=== PATIENT | male | born 1965 | race Caucasian/White ===

== ENCOUNTER 2017-09-15 08:24 | Day surgery (SDC) | payer OTHER ==
[~2017-09-15] VITALS: Ht 182.9 cm; Wt 152.9 kg
[~2017-09-15 08:24] MED LIST: ADDERALL XR 1515 MG PO; FLOVENT DISKUS50 MCG INH; FLUVOXAMINE MA100 M1 PO; GABAPENTIN400 MG PO; LANTUS100 UNITS/ SUB-Q; LISINOPRIL40 MG PO; METFORMIN HCL1000 M2 PO; MOBIC7.5 MG PO; NOVOLOG FL100 UNIT/1 SUB-Q; PROPRANOLOL HCL20 MG PO; SYNTHROID200 MCG PO; TORSEMIDE10 MG PO; VYVANSE70 MG PO; WELLBUTRIN SR150 MG PO
[2017-09-15] MEDS ORDERED: VICTOZA 2-0.6 MG/0.1 SUB-Q (08:55)
--- NOTE | 2017-09-15 10:00 | NUR ---
09/15/17 Lisha Hernández 0997 PATIENT ARRIVES TO PACU SLEEPING, AWAKENS WITH VERBAL STIMULI, BUT VERY DROWSY, IMMEDIATELY BACK TO SLEEP WITHOUT STIMULATION. RESP EVEN AND UNLABORED, NC AT 2 LITERS.
--- NOTE | 2017-09-16 07:54 | OR ---
[facility] [address], [place] [address] Signed DATE OF OPERATION: 09/15/2017 SURGEON: Ru Covington MD COLONOSCOPY REPORT PREOPERATIVE DIAGNOSIS: Screening. POSTOPERATIVE DIAGNOSIS: A 4 mm polyp at 45 cm. PROCEDURE: Colonoscopy with hot biopsy. ESTIMATED BLOOD LOSS: None. INDICATIONS: Masuod is a 52-year-old, obese, diabetic gentleman, asked to see me for his initial colonoscopy. He said there are no lower GI complaints. No family history of colon cancer or polyps. In the office, I gave him a pamphlet on colonoscopy. We looked at that together along with the risks including, but not limited to gas bloating, crampy abdominal pain, bleeding, perforation, requiring surgery and missed diagnosis. We also reviewed the written instructions for the bowel prep. He is well aware of the need for IV conscious sedation. He had expressed understanding and wished to proceed. PROCEDURE NOTE: Masoud was taken into our endoscopy suite and placed in the left lateral decubitus position. He was given 7 mg of Versed and 150 mcg of fentanyl for the case. A digital rectal exam was performed and I could just reach the bottom of the prostate gland and it seemed unremarkable. The adult colonoscope was introduced and advanced all the way next to the cecum under direct visualization of camera without difficulty. We brought the scope in and out several times and we simply ran out of the scope. We were cleared up to the handle. Masoud is a large man and with a long colon. Overall, his prep was good. He had a little bit of liquid stool, most of which we could irrigate and suction out. The scope was then slowly withdrawn. We saw a single 4 mm polyp back at 45 cm. It was easily removed with hot biopsy forceps. The rest of the colon and rectum were fine. Upon retroflexion of the scope, there was no additional pathology noted above the anal canal. After this, the gas was suctioned out. The colonoscope removed. Masoud tolerated Electronically Signed By: RU COVINGTON MD 09/16/17 0754 PATIENT NAME: MASOUD VARGAS OPERATIVE REPORT DATE OF : 69 REPORT #: [id number] PHYSICIAN: RU COVINGTON MD PCP: ARIANNA FIELD DO REPORT IS CONFIDENTIAL AND NOT TO BE RELEASED WITHOUT AUTHORIZATION [address] [address] Signed the procedure quite well. RECOMMENDATIONS: I will see Masoud back in my office in 7 to 14 days to review his results. Ru Covington MD ALB/MODL /[id number] cc: DO Ru Huber MD Copies: ARIANNA FIELD ANDREW L MD ~ Electronically Signed By: RU COVINGTON MD 09/16/17 0754 PATIENT NAME: MASOUD VARGAS OPERATIVE REPORT DATE OF : 69 REPORT #: [id number] PHYSICIAN: RU COVINGTON MD PCP: ARIANNA FIELD DO REPORT IS CONFIDENTIAL AND NOT TO BE RELEASED WITHOUT AUTHORIZATION
== END 2017-09-15 11:40 | disposition home or self-care (01) ==
LOC: OPS 08:24 → DS 08:24 → OPS 09:45
PROVIDERS: Colon & Rectal Surgery
PROC: 0DBE8ZZ Excision of Large Intestine, Via Natural or Artificial Opening Endoscopic (ICD-10-PCS; principal; 2017-09-15 09:45)
DX: Z12.11 Encounter for screening for malignant neoplasm of colon (principal); D12.6 Benign neoplasm of colon, unspecified; I10 Essential (primary) hypertension; E78.5 Hyperlipidemia, unspecified; E10.42 Type 1 diabetes mellitus with diabetic polyneuropathy; F32.9 Major depressive disorder, single episode, unspecified; F41.9 Anxiety disorder, unspecified; Z79.4 Long term (current) use of insulin; Z79.1 Long term (current) use of non-steroidal anti-inflammatories (NSAID); Z79.899 Other long term (current) drug therapy
CPT/HCPCS: 99153; G0500; J2250; J3010; J7120

== ENCOUNTER 2018-10-01 20:20 | Emergency (ER) | payer OTHER ==
[~2018-10-01] VITALS: Ht 182.9 cm; Wt 155.1 kg
--- OUTSIDE RECORDS SUMMARY | ~2018-10-01 | XMS | Clinical Summary ---
Demographics + + + | Address | [address] | | | [place] [address] | + + + | Home Phone | | + + + | Preferred Language | Unknown | + + + | Marital Status | | + + + | Alevism Affiliation | Unknown | + + + | Race | Unknown | + + + | Ethnic Group | Unknown | + + + Author + + + | Author | [facility] | | | and [place] | + + + | Organization | [facility] | | | and [place] | + + + | Address | Unknown | + + + | Phone | Unavailable | + + + Support + + +---------+ + | Name | Relationship | Address | Phone | + + +---------+ + | Tessa Costa | ECON | Unknown | | + + +---------+ + | Rose Espana | ECON | Unknown | | + + +---------+ + Care Team Providers + +------+ + | Care Electric Sealing Machine Operator Name | Role | Phone | + +------+ + PP | Unavailable | + +------+ + Allergies Not on File Medications Not on file Active Problems Not on file Social History + +-------+ +--------+------+ | Tobacco Use | Types | Packs/Day | Years | Date | | | | | Used | | + +-------+ +--------+------+ | Never Assessed | | | | | + +-------+ +--------+------+ + + + | Sex Assigned at | Date Recorded | | | | + + + | Not on file | | + + + + + + + | Job Start Date | Occupation | Industry | + + + + | Not on file | Not on file | Not on file | + + + + + + + + | Travel History | Travel Start | Travel End | + + + + + + | No recent travel history available. | + + Plan of Treatment + + + + + | Health Maintenance | Due Date | Last Done | Comments | + + + + + | Vaccine: | | | | | Dtap/Tdap/Td (1 - | 6 | | | | Tdap) | | | | + + + + + | Vaccine: Zoster (1 | | | | | of 2) | 7 | | | + + + + + | Vaccine: Influenza | | | | | (Season Ended) | 9 | | | + + + + + Results Not on filefrom Last 3 Months"
--- OUTSIDE RECORDS SUMMARY | ~2018-10-01 | XMS | Clinical Summary ---
Demographics + + + | Address | [address] | | | [place] [address] | + + + | Home Phone | | + + + | Preferred Language | Unknown | + + + | Marital Status | | + + + | Christian Affiliation | Unknown | + + + | Race | Unknown | + + + | Ethnic Group | Unknown | + + + Author + + + | Author | [facility] | | | and [place] | + + + | Organization | [facility] | | | and [...] Team Providers + +------+ + | Care Beverage Manager Name | Role | Phone | + [...]
[~2018-10-01 20:20] MED LIST changes: +VICTOZA 2-0.6 MG/0.1 SUB-Q
--- OUTSIDE RECORDS SUMMARY | 2018-10-01 20:24 | XMS ---
PreManage Notification: JEFFREY VARGAS Security Research Asst Events No recent Security Events currently on file [facility] There are no care providers on record at this time. [place] has no Care Guidelines for this patient. [place] VISIT COUNT (12 MO.) 1 INESSA Sofia TOTAL 1 NOTE: Visits indicate total known visits. ED/C VISIT TRACKING (12 MO.) 10/01/2018 20:21 INESSA Frausto [place] TYPE: Emergency COMPLAINT: - LEFT LEG SWELLING PAIN/NON INJURY INPATIENT VISIT TRACKING (12 MO.) No inpatient visits to display in this time frame [email or web address]
[2018-10-01] MEDS ORDERED: KEFLEX500 MG PO (23:18)
== END 2018-10-01 23:48 | disposition home or self-care (01) ==
LOC: ED 20:20
DX: L03.116 Cellulitis of left lower limb (principal); E03.9 Hypothyroidism, unspecified; I10 Essential (primary) hypertension; E11.40 Type 2 diabetes mellitus with diabetic neuropathy, unspecified; Z79.4 Long term (current) use of insulin; Z79.899 Other long term (current) drug therapy; Z23 Encounter for immunization
CPT/HCPCS: 80053; 83605; 85025; 90471; 90715; 93971; 99284-25; J3370; J7060

== ENCOUNTER 2020-09-23 04:22 | Emergency (ER) | payer OTHER ==
[~2020-09-23] VITALS: Ht 182.9 cm; Wt 152.4 kg
[~2020-09-23 04:22] MED LIST changes: +KEFLEX500 MG PO
[2020-09-23] MEDS ORDERED: TOUJEO SOL300 UNIT/1 SUB-Q (04:44)
[2020-09-23] MEDS ORDERED: JARDIANCE25 MG PO (05:01)
[2020-09-23] MEDS ORDERED: TORSEMIDE10 MG PO (05:02)
[2020-09-23] MEDS ORDERED: DEXCOM G61 EACH MC (05:02)
--- NOTE | 2020-09-23 07:02 | EKG ---
[facility] [address] [facility] [place] [address] Signed Normal sinus rhythm Low voltage QRS Borderline ECG No previous ECGs available Confirmed by ELAINA SANCHEZ MD ([id number]) on 09/23/2020 7:02:26 AM Electronically Signed By: ELAINA SANCHEZ MD 09/23/20 0702 PATIENT NAME: JEFFREY VARGAS Electrocardiogram DATE OF : 69 PHYSICIAN: ELAINA SANCHEZ MD REPORT #: [id number] REPORT IS CONFIDENTIAL AND NOT TO BE RELEASED WITHOUT AUTHORIZATION
== END 2020-09-23 10:16 | disposition home or self-care (01) ==
LOC: ED 04:22
DX: T46.4X1A Poisoning by angiotensin-converting-enzyme inhibitors, accidental (unintentional), initial encounter (principal); T44.7X1A Poisoning by beta-adrenoreceptor antagonists, accidental (unintentional), initial encounter; T43.291A Poisoning by other antidepressants, accidental (unintentional), initial encounter; T38.3X1A Poisoning by insulin and oral hypoglycemic [antidiabetic] drugs, accidental (unintentional), initial encounter; E11.40 Type 2 diabetes mellitus with diabetic neuropathy, unspecified; E03.9 Hypothyroidism, unspecified; I10 Essential (primary) hypertension; Z79.899 Other long term (current) drug therapy; Z79.4 Long term (current) use of insulin
CPT/HCPCS: 93005; 93010; 99284-25

== ENCOUNTER 2023-12-11 22:21 | Inpatient (IN) | payer OTHER ==
[~2023-12-11] VITALS: Ht 182.9 cm; Wt 120.0 kg
--- NOTE | ~2023-12-11 | HP ---
[facility] [address] [place], [place] [address] [place] ADMISSION DATE: 12/12/2023 REASON FOR ADMISSION: Gangrenous soft tissue changes, left great toe. 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 He is and has step children. He has a longstanding history of diabetes and chronic diabetic foot problems. He suffered an injury to the left great toe approximately a year ago, which has had repeated infection. He suffered a laceration on the pad of his foot and has been evaluated and treated by Dr. Woods, his superior court justice over time. Last week, he noted erythema developing on the great toe and was prescribed cefadroxil, which he started two days prior to current evaluation. The patient has had pain and swelling and redness in the left great toe and to a lesser extent the forefoot and smaller toes. He presented to the emergency room and was evaluated by Dr. Wilkerson. His superior court justice was not available and I was consulted regarding this. I recommended direct admission to the hospital, IV antibiotics and further evaluation. The patient notes that there was no "black change and" only two days ago and this is a recent phenomenon. He does not have too much pain as he does have peripheral neuropathy. He has been noted to have a palpable dorsalis pedis pulse. His antibiotic that was prescribed was Zosyn and daptomycin. I had recommended a plain x-ray of the foot be undertaken and it was, which has described as showing a possibility of osteomyelitis of the base of the distal bony segment. There appeared to be a lucency in the bone of the distal phalanx portion and a separate bone chip as well. The patient tells me he has not had an x-ray in the course of his evaluation and treatment that he recalls. PAST MEDICAL HISTORY: Quite notable for diabetes mellitus. He has hypothyroidism and hypertension as well. MEDICATIONS: Include Repatha 14 mg subcutaneously weekly, Jardiance 25 mg p.o. daily, torsemide 10 mg p.o. daily, NovoLog insulin as needed, gabapentin 400 mg p.o. daily, Synthroid 200 mcg p.o. daily, and lisinopril 40 mg p.o. daily. ALLERGIES: He has no known drug allergies. PATIENT NAME: JEFFREY VARGAS HISTORY AND PHYSICAL DATE OF : 69 REPORT #: [id number] PHYSICIAN: GRETA DOTY MD PCP: MELISSA AMBROSE MD REPORT IS CONFIDENTIAL AND NOT TO BE RELEASED WITHOUT AUTHORIZATION [facility] [address] [place], [place] [address] [place] His dominant diagnoses include diabetes mellitus, hypothyroidism, hypertension, and peripheral neuropathy. PAST SURGICAL HISTORY: Include sinus surgery in February of 2023, and partial meniscus operation in the right knee. SOCIAL HISTORY: He does not smoke. REVIEW OF SYSTEMS: He denies any shortness of breath or chest pain. He does not have excessive pain in his left great toe, though it is more than usual. PHYSICAL EXAMINATION: GENERAL: A pleasant white man who does not appear to be systemically toxic at this time. VITAL SIGNS: BMI is 35.9 with a weight of 120 kg, height 6 feet 0 inches. HEENT: Trachea is midline. Mucous membranes are moist. An IV is running in his arm. CHEST: Shows normal respiratory excursion. Pulses regular. ABDOMEN: Nondistended and soft. EXTREMITIES: Examination of his left leg and foot shows a palpable dorsalis pedis pulse 3/3. There is a demarcation line initially inscribed by the emergency room, shows erythematous area having retreated largely. The left great toe is quite markedly necrotic and with sparing somewhat of the plantar aspect of the great toe. The other toes are relatively normal, though there is erythema at the base of the forefoot generally. There is an infected toe nail (fungal infection). LABORATORY STUDIES: Show white count of 8.7, hematocrit 44.7, platelets a 180,000. Chem profile is otherwise normal. Glucose was 93 at the time of admission. The x-ray of great toe describes suspicion for osteomyelitis of the left great toe in the distal phalangeal base. ASSESSMENT: The patient has gangrenous soft tissue changes of the left great toe. He has been battling low-grade traumatic injury for over a year related to a blunt trauma to his left great toe and more recently an antibiotic prescription by Dr. Woods, his superior court justice for soft tissue infection of the great toe. The probability of osteomyelitis at the base of the distal phalanx of the left great toe is significant and there appears to be possibly either an extra phalangeal new ossification or more likely a bone chip in PATIENT NAME: JEFFREY VARGAS HISTORY AND PHYSICAL DATE OF : 69 REPORT #: [id number] PHYSICIAN: GRETA DOTY MD PCP: MELISSA AMBROSE MD REPORT IS CONFIDENTIAL AND NOT TO BE RELEASED WITHOUT AUTHORIZATION [address] [address] [place] the soft tissue as well. The area in question has caused cellulitis of his forefoot and certainly of the great toe. He needs debridement of the gangrenous tissue of the great toe and is a reasonably high probability, he may ultimately require excision of the distal phalanx of the left great toe as well. I discussed this with him in detail. We will provide for debridement today and he may have some possible salvage of the plantar aspect of the great toe to allow for tissue coverage later. The wound VAC may be required in the short term. MD MCKINLEY Grant/MAYDA /[id number] cc: [address] Copies: NU WOODS DPM ~ PATIENT NAME: JEFFREY VARGAS HISTORY AND PHYSICAL DATE OF : 69 REPORT #: [id number] PHYSICIAN: GRETA DOTY MD PCP: MELISSA AMBROSE MD REPORT IS CONFIDENTIAL AND NOT TO BE RELEASED WITHOUT AUTHORIZATION
[~2023-12-11 22:21] MED LIST changes: +DEXCOM G61 EACH MC; +JARDIANCE25 MG PO; +NOVOLOG FL100 UNIT/1; -NOVOLOG FL100 UNIT/1 SUB-Q; +REPATHA SU140 MG/1 M SUB-Q; +TOUJEO SOL300 UNIT/1 SUB-Q; +TRULICITY3 MG/0.5 M SUB-Q
[2023-12-11 22:59] LABS: HEMOGLOBIN 14.8 g/dL (12.0-18.0)
[2023-12-11 23:02] LABS: BASOPHILS 0.3 % (0-2); EOSINOPHILS 0.4 % (0-6); HEMATOCRIT 44.7 % (35.0-50.0); LYMPHOCYTES 5.4 % (24-44); MCHC 33.1 g/dl (30-36); MCV 96.8 fl (81-99); MONOCYTES 11.9 % (0-12); PLATELET COUNT 180 K/uL (140-440); RBC 4.62 M/ul (4.3-5.7)
[2023-12-11 23:17] LABS: ALBUMIN 3.2 g/dL (3.4-5.0); ALBUMIN/GLOBULIN RATIO 0.73 (1.1-2.4); ANION GAP 21.4 (7-21); BILIRUBIN, TOTAL 0.5 ng/dL (0.2-1.0); BUN/CREATININE RATIO 20.19 (6.0-28.6); CALCIUM 9.3 mg/dL (8.5-10.1); CREATININE, SERUM 1.04 mg/dL (0.70-1.30); POTASSIUM 4.4 mmol/L (3.5-5.1); PROTEIN, TOTAL 7.6 g/dL (6.4-8.2)
[2023-12-11 23:20] LABS: LACTIC ACID, BLOOD 1.2 mmol/L (0.4-2.0)
[2023-12-11] MEDS ORDERED: DEXTROSE 5% 100 ML IV ONE (23:24)
[2023-12-11] MEDS ORDERED: DAPTOmycin 500 MG/10 ML VIAL IV ONE (23:30)
[2023-12-11] MEDS ORDERED: PIPERACILLIN/TAZOBACTAM 3.375 GM in DEXTROSE 5% 100 ML IV ONE (23:30)
[2023-12-11] MEDS ORDERED: LACTATED RINGER'S 1,000 ML IV ONE (23:45)
[2023-12-11] MEDS ORDERED: ondansetron HCL 4 MG/2 ML VIAL IV PRN (23:45)
[2023-12-11] MEDS ORDERED: FAMOTIDINE 20 MG/ 2 ML VIAL IV SCH (23:46)
--- NOTE | 2023-12-11 23:55 | NUR ---
CIRCUMFERENTIAL REDNESS AND EDEMA FROM MID FOOT TO TOES OF LEFT FOOT. POSTERIOR FIRST DIGIT OF LEFT FOOT HAS UNSTAGEABLE PRESSURE ULCER 1.3CM X 0.3CM X0.3CM WITH MODERATE AMOUNTS OF PURULENT DRAINAGE. UNABLE TO VISUALIZE THE BASE OF WOUND. EDGES APPEAR ROLLED. MARGIN OF 0.2CM ARE RED WITH EDEMA. WOUND CLEANSED WITH SOAP AND WATER. CLEANSED WITH WOUND CLEANSER. IODOSORB PLACED IN WOUND. DORSAL 1ST DIGIT OF LEFT FOOT HAS REDNESS, EDEMA AND SEROUS DRAINAGE CIRCUMFERENTIALLY FROM THE BASE OF THE TOENAIL TO THE TIP. FROM THE BASE OF THE TOENAIL FOR 4CM PROXIMAL TO THE ANKLE ON THE DORSAL TOE THERE IS A NON INTACT BULLA WITH A MODERATE AMOUNT OF PURULENT DRAINAGE. THIS OPEN DORSAL WOUND EXTENDS FROM THE LATERAL TO MEDIAL SIDES OF THE TOE. THERE IS BLACK STABLE ESCHAR ON THE DORSAL TOE. THE ENTIRE TOE IS CLEANED WITH SOAP AND WATER AFTER LIGHTLY EXPRESSING ABOUT 3 ML OF SEROSANGUINOUS PURULENT DRAINAGE. A WOUND CULTURE IS THEN COLLECTED AND SENT TO LAB. PHOTO CONSENT COMPLETED AND PHOTOS TAKEN FOR CHART. WOUND CLEANSER IS USED THEN AN ABD PAD IS CUT TO SIZE AND PLACED AROUND THE TOE AND HELD IN PLACE WITH KERLIX. A NON SLIP SOCK IS THEN PLACED OVER THE DRESSING. RIGHT FOOT, 3RD DIGIT, PLANTAR SURFACE HAS AN UNSTAGABLE PRESSURE ULCER WITH BLACK STABLE ESCHAR. AREA CLEANED AND LEFT OPEN TO AIR.
[2023-12-12] VITALS (14 sets, daily range): BP systolic 96–132; BP diastolic 51–70
[2023-12-12 00:13] LABS: INR 1.09 (0.80-1.30); PROTIME 13.4 Sec (11.2-14.2)
--- NOTE | 2023-12-12 01:42 | NUR ---
Ppt admitted to room 116 at 0040 via stretcher from ed. able to transfer self to bed. up to brp, has voided, back to bed. cooperative with admit verónicae. ivf infusing lac, on room air, uses CPAP at home, family will bring home machine.clear lungs. LBM 12/09,. bruised lower l thigh "from Ozempic" stated. vascular discoloration of bilat calfs. Old scabbed over area under 2nd R toe and discoloration of second toenail. dressing noted over L big toe, pt was seen and treated by wound nurse in the ER. edema surrounding Toe noted. pt has neuropathy/numbness of hands and numbness and tingling of bilat feet. Pt has a Dexcom glucose reading on R abd. IVF infusing LAC.
--- NOTE | 2023-12-12 03:16 | NUR ---
TP AWAKE, GIRFRIEND BROUGHT HOME CPAP, RT EVALUATED MACHINE. PT USING IT. UP TO BRP, VOIDED, DRESSING L BIG TOE INTACT, IVF INFUSING, INDEPENDENT/SBA IN ROOM
[2023-12-12 05:18] LABS: BASOPHILS 0.1 % (0-2); EOSINOPHILS 0.7 % (0-6); HEMATOCRIT 39.4 % (35.0-50.0); HEMOGLOBIN 13.1 g/dL (12.0-18.0); LYMPHOCYTES 12.3 % (24-44); MCH 31.4 (27-36); MCHC 33.2 g/dl (30-36); MCV 94.7 fl (81-99); NEUTROPHILS 72.9 % (39-80); PLATELET COUNT 168 K/uL (140-440); RBC 4.16 M/ul (4.3-5.7); RDW 13.2 (10.5-15.0)
[2023-12-12] MEDS ORDERED: DEXTROSE 5% 100 ML IV ONE (05:23)
[2023-12-12 05:32] LABS: ALBUMIN 2.6 g/dL (3.4-5.0); ALBUMIN/GLOBULIN RATIO 0.68 (1.1-2.4); ANION GAP 18.9 (7-21); BILIRUBIN, TOTAL 0.5 ng/dL (0.2-1.0); BUN/CREATININE RATIO 22.1 (6.0-28.6); CALCIUM 8.5 mg/dL (8.5-10.1); CREATININE, SERUM 0.95 mg/dL (0.70-1.30); POTASSIUM 3.9 mmol/L (3.5-5.1); PROTEIN, TOTAL 6.4 g/dL (6.4-8.2)
--- NOTE | 2023-12-12 05:43 | NUR ---
Pt awake, turns and repositions self in bed. Using home CPAP. Up toBRP earlier, instructed to use urinal. Dressing to L big toe still intact with small amount like a 5 cents piece of serous drainage underneath. IVF infusing w/o problems. tolerating being NPO
[2023-12-12] MEDS ORDERED: PIPERACILLIN/TAZOBACTAM 3.375 GM in DEXTROSE 5% 100 ML IV SCH (06:00)
--- NOTE | 2023-12-12 07:10 | NUR ---
REPORT RECEIVED FROM PROPOSAL LEAD WRITER RN RAMIRO. WOUND ON THE LEFT GREAT TOE SEEN WITH THA RUBIO. PATIENT IS SITTING UPRIGHT IN BED AND LOOKING AT THEIR PHONE. RESPIRATIONS ARE EVEN AND UNLABORED. PATIENT STATED NO NEEDS AT THIS TIME. CALL LIGHT AND PERSONAL BELONGINGS ARE WITHIN REACH.
--- NOTE | 2023-12-12 08:01 | NUR ---
PATIENT IN BED AT THIS TIME. CALL LIGHT WITHIN REACH, NO FURTHER NEEDS AT THIS TIME.
--- NOTE | 2023-12-12 08:50 | NUR ---
0900 MEDICATIONS ADMINISTERED PER THE EMAR. FULL ASSESSMENT COMPLETE AND DOCUMENTED IN THE CHART. PATIENT IS ALERT AND ORIENTED TIMES FOUR. CARDIAC WITH NORMAL S1 AND S2. RADIAL PULSES ARE STRONG BILATERALLY. SENSATION INTACT. PATIENT WITH NUMBNESS AND TINGLING AT BASELINE IN THE UPPER AND LOWER EXTREMITIES BILATERALLY. UMU LOWER SHINS NOTED. GENERALIZED EDEMA IN THE LEFT LOWER EXTREMITY. SCAB NOTED ON THE RIGHT 3RD TOE AND A BRUISE ON THE RIGHT 2ND TOENAIL. DRESSING ON THE LEFT GREAT TOE IS INTACT. SMALL AMOUNT OF YELLOW DRAINAGE NOTED ON THE UNDER SIDE. LUNG SOUNDS ARE CLEAR IN ALL LUNG PEREZ BILATERALLY. PATIENT IS ON ROOM AIR AND USES HIS PERSONAL CPAP AT NIGHT. BOWEL TONES ARE ACTIVE IN ALL FOUR QUADRANTS. PATIENT WITH PAIN RATED 2/10 ON THE LEFT GREAT TOE. PATIENT IS NOT REQUESTING PAIN MEDICATION AT THIS TIME. PATIENT IS INDEPENDENT IN THE ROOM. PATIENT STATED NO FURTHER NEEDS AT THIS TIME. CALL LIGHT AND PERSONAL BELONGINGS ARE WITHIN REACH.
[2023-12-12] MEDS ORDERED: DULOXETINE HCL20 MG PO (10:16)
[2023-12-12] MEDS ORDERED: OZEMPIC2 MG/0.75 SUB-Q (10:19)
[2023-12-12] MEDS ORDERED: BUPROPION HCL150 M2 PO (10:21)
[2023-12-12] MEDS ORDERED: WELLBUTRIN SR150 MG PO (10:21)
[2023-12-12] MEDS ORDERED: METFORMIN HCL1000 MG PO (10:23)
--- NOTE | 2023-12-12 10:26 | NUR ---
LOOSE GAUZE WRAPPED AROUND THE PATIENT R GREAT TOE. LR WITH STRAIGHT TUBING IN THE PATIENTS ROOM. PATIENT EDUCATED BY WET SANDER ON PRE-PROCEDURE WIPE DOWN AND A NEW GOWN IS AT THE BEDSIDE. PATIENT WITH NO QUESTIONS OR CONCERNS. CALL LIGHT AND PERSONAL BELONGINGS ARE WITHIN REACH.
[2023-12-12] MEDS ORDERED: LACTATED RINGER'S 1,000 ML IV SCH (10:30)
[2023-12-12] MEDS ORDERED: FAMOTIDINE 20 MG/ 2 ML VIAL ONE (10:37)
[2023-12-12] MEDS ORDERED: propofoL 200 MG/20 ML VIAL ONE (10:37)
[2023-12-12] MEDS ORDERED: METOCLOPRAMIDE HCL 10 MG/2 ML SDV ONE (10:37)
[2023-12-12] MEDS ORDERED: DEXAMETHASONE SOD PHOS 4 MG/ML VIAL ONE (10:37)
[2023-12-12] MEDS ORDERED: ondansetron HCL 4 MG/2 ML VIAL ONE (10:37)
[2023-12-12] MEDS ORDERED: MIDAZOLAM HCL 2 MG/2 ML VIAL ONE (10:37)
[2023-12-12] MEDS ORDERED: KETOROLAC TROMETHAMINE 30 MG/ML VIAL ONE (10:37)
[2023-12-12] MEDS ORDERED: fentaNYL citrate 100 MCG/2 ML VIAL ONE (10:37)
[2023-12-12] MEDS ORDERED: CloNIDine HCl/Pf 1,000 MCG/10 ML VIAL ONE (10:39)
[2023-12-12] MEDS ORDERED: BUPIVACAINE HCL 0.5% 30 ML VIAL ONE (10:39)
[2023-12-12] MEDS ORDERED: PIPERACILLIN/TAZOBACTAM 4.5 GM in DEXTROSE 5% 100 ML IV SCH (11:00)
--- NOTE | 2023-12-12 11:00 | NUR ---
PATIENT WENT DOWN TO SURGERY AT THIS TIME.
--- NOTE | 2023-12-12 12:04 | NUR ---
PATIENT OFF THE FLOOR AT THIS TIME.
--- NOTE | 2023-12-12 12:20 | NUR ---
12/12/23 1220 Tatum Biggs 1155 PATIENT INTO PACU BAY 5. REPORT RECEIVED FROM REBEL DEE. PATIENT NONAROUSABLE. PATIENT HAS OPA IN. BREATHING EQUAL AND UNLABORED. OXYGEN SATURATIONS MAINTAIN ABOVE 95% ON 10 LITERS. SR ON TELE. RR 12-20. SURGICAL SITE HAS SMALL AMOUNT OF RED DRAINAGE UNDER THE WOUND VAC. VAC AT 120 MMHG. SCD'S ON. IVF INFUSING IN PATENT LINE. 1200 PATIENT OPA REMOVED. PATIENT BREATHING EQUAL AND UNLABORED. AROUSABLE BY VERBAL STIMULI. OXYGEN SATURATIONS MAINTAIN ABOVE 95% ON 6 LITERS OF OXYGEN. RR 10-20. SR ON TELE. 1205 REBEL DEE TO DO BLOCK AT BEDSIDE. CBG CHECK 100. 1210 PATIENT DROWSY BUT ORIENTED. BREATHING EQUAL AND UNLABORED. OXYGEN SATURATIONS ABOVE 95% ON 6 LITERS. PATIENT DENIES BEING IN PAIN OR BEING NAUSEATED. 1215 PATIENT TITRATED OFF OF OXYGEN. BREATHING EQUAL AND UNLABORED. OXYGEN SATURATIONS 95% ON ROOM AIR. PATIENT DROWSY BUT ORIENTED. DR. DOTY AT BEDSIDE TALKING TO PATIENT. PATIENT HEAD OF BED ELEVATED.
[2023-12-12] MEDS ORDERED: droPERidol 5 MG/2 ML VIAL IV PRN (12:30)
[2023-12-12] MEDS ORDERED: IBLOOD GLUCOSE TEST STRIP 1 EA TEST VI PRN (12:30)
[2023-12-12] MEDS ORDERED: ondansetron HCL 4 MG/2 ML VIAL IV PRN (12:30)
[2023-12-12] MEDS ORDERED: METOCLOPRAMIDE HCL 10 MG/2 ML SDV IV PRN (12:30)
[2023-12-12] MEDS ORDERED: NALOXONE HCL 0.4 MG SYR IV PRN (12:30)
[2023-12-12] MEDS ORDERED: MORPHINE SULFATE 10 MG/ML VIAL IV PRN (12:30)
[2023-12-12] MEDS ORDERED: PROCHLORPERAZINE EDISYLATE 10 MG/2 ML VIAL IV PRN (12:30)
[2023-12-12] MEDS ORDERED: fentaNYL citrate 50 MCG/ML SDV IV PRN (12:30)
[2023-12-12] MEDS ORDERED: buPROPion HCL 150 MG TABCR PO SCH (12:32)
[2023-12-12] MEDS ORDERED: EMPAGLIFLOZIN 25 MG TAB PO SCH (12:33)
[2023-12-12] MEDS ORDERED: DULOXETINE HCL 20 MG CAP PO SCH (12:33)
[2023-12-12] MEDS ORDERED: GABAPENTIN 400 MG CAP PO SCH ×2 (12:33→21:00)
[2023-12-12] MEDS ORDERED: LEVOTHYROXINE SODIUM 100 MCG TAB PO SCH (12:34)
[2023-12-12] MEDS ORDERED: lisinopriL 20 MG TAB PO SCH (12:34)
[2023-12-12] MEDS ORDERED: TORSEMIDE 5 MG TAB PO SCH (12:35)
--- NOTE | 2023-12-12 12:50 | NUR ---
PATIENT RETURNED TO THE FLOOR FROM SURGERY. REPORT RECEIVED FROM DAY SURGERY/PACU NURSES. VITAL SIGNS TAKEN AND DOCUMENTED IN THE CHART. PATIENT LUNG SOUNDS ARE CLEAR IN ALL LUNG PEREZ BILATERALLY. PATIENT IS ON ROOM AIR WITH A CPOX AT THE BEDSIDE. CARDIAC WITH NORMAL S1 AND S2 ON AUSCULTATION. RADIAL AND PEDAL PULSES ARE STRONG BILATERALLY. BOWEL TONES ARE ACTIVE IN ALL FOUR QUADRANTS. IV SITE DRESSING IS CLEAN, DRY, AND INTACT. IV FLUSHED WITH 10 ML NORMAL SALINE. PATIENT IS WITH NO COMPLAINTS OF PAIN AND SENSATION IS INTACT. PATIENT WITH WOUND VAC PLACED ON THE LEFT GREAT TOE. PATIENT STATED NO FURTHER NEEDS AT THIS TIME. CALL LIGHT AND PERSONAL BELONGINGS ARE WITHIN REACH.
[2023-12-12] MEDS ORDERED: DEXTROSE 5% 1,000 ML IV PRN (13:15)
[2023-12-12] MEDS ORDERED: DEXTROSE 50% 50 ML SYR IV PRN ×2 (13:15)
[2023-12-12] MEDS ORDERED: GLUCAGON,HUMAN RECOMBINANT 1 MG/ML VIAL SUB-Q PRN (13:15)
[2023-12-12] MEDS ORDERED: IBLOOD GLUCOSE TEST STRIP 1 EA TEST XX PRN (13:15)
[2023-12-12] MEDS ORDERED: IBLOOD GLUCOSE TEST STRIP 1 EA TEST VI SCH (17:00)
[2023-12-12] MEDS ORDERED: INSULIN LISPRO 100 UNIT/ML ML SUB-Q SCH (17:00)
--- NOTE | 2023-12-12 18:13 | NUR ---
BLADDER SCAN COMPLETE WITH 589 ML URINE IN THE BLADDER. PATIENT ENCOURAGED TO USE THE URINAL AT THIS TIME.
--- NOTE | 2023-12-12 18:36 | NUR ---
MD NOTIFIED OF PATIENT BLADDER SCAN WITH ALMOST 600 ML OF URINE. TELEPHONE ORDER RECEIVED TO STRAIGHT CATH WELL AN ORDER FOR FLOMAX AT 0.8 MG PO NOW. RN PUT FURTHER INSTRUCTIONS IN A NURSE NOTIFIY. WITH NO FURTHER QUESTIONS OR CONCERNS. CALL ENDED.
[2023-12-12] MEDS ORDERED: TAMSULOSIN HCL 0.4 MG CAP PO ONE (18:45)
--- NOTE | 2023-12-12 18:58 | NUR ---
STRAIGHT CATHETER PROCEDURE COMPLETE AND PATIENT TOLERATED WELL. BLADDER EMPTIED OF 675 ML OF YELLOW URINE. LILIA CARE COMPLETE AFTER THE PROCEDURE. THA FREGOSO ASSISTED AT THE BEDSIDE. PATIENT EDUCATED ON GREATER THAN 600 ML URINE IN THE BLADDER AGAIN GAVE ORDER TO INSERT A CANCINO CATHETER. PATIENT EXPRESSED UNDERSTANDING. PATIENT STATED NO FURTHER NEEDS AT THIS TIME. CALL LIGHT AND PERSONAL BELONGIGNS ARE WITHIN REACH.
--- NOTE | 2023-12-12 19:45 | NUR ---
Pt in bed, hob elevated. IVF infusing, first dose of Flomax given, med teaching done. aware of bladder scanning and possible f/c placement if over 600cc in bladder and no void by [id number] am. stated understanding. wound vac in place L big toe. no c/o pain. playing with phone
[2023-12-12] MEDS ORDERED: DAPTOmycin 500 MG/10 ML VIAL IV SCH (21:00)
--- NOTE | 2023-12-12 22:00 | NUR ---
PT IN BED, IVF INFUSING, WOUND VAC TO LEFT TOES IN PLACE, ELEVATED, REDNESS AND EDEMA IMPROVED, ELEVATED IN PILLOW. SCDS IN PLACE. NO C/O PAIN. TOLERATING LIQUIDS WELL, SNACKS GIVEN. IN ROOM
[2023-12-13] VITALS (11 sets, daily range): BP systolic 111–129; BP diastolic 63–67
--- NOTE | 2023-12-13 00:06 | NUR ---
Pt awake, angelito need to urinate. Bladder scanned show 538cc. Urinal given to pt. will wait for a while to see if he could void. Pt aware. if no void by [address] f/c, and his stated understanding. wound vac L toe in place, IVF infusing. scds in place. Moving legs
--- NOTE | 2023-12-13 01:35 | NUR ---
0100 - PT UNABLE TO URINATE IN SITTING POSITION IN BED USING URINAL. 3PA, UP TO EDGE OF BED. C/O STILL FEELING NUMB L LEG, BUT DID STOOD UP, MOVED LEGS AND TOLERATED VERY WELL, STILL UNABLE TO VOID, BACK TO BED, BLADDER SCANNED AGAIN AND IT SHOWED OVER OVER 700CC. DENIES BLADDER DISTENTION OR NEED TO URINATE. PROCEDURE EXPLAINED. 16FR F/C INSERTED W/O PROBLEMS. VOIDED INMEDIATELY 800CC CLEAR YELLOW URINE. COMFORTABLE. IVF INFUSING LA, CPAP AT BEDSIDE. WOUND VAC IN PLACE L BIG TOE, SCDS IN PLACE. NO C/O PAIN.
--- NOTE | 2023-12-13 02:31 | NUR ---
Pt used call light, "I have to have a bm". Up to edge of bed to BS, had a large very hard brown bm. back to bed, tolerated well, on room air, IVF infusing. wound vac L big toe in place, patent, scds in place. f/c patent draining yellow urine. L leg elevated in pillows, no c/o pain. using home CPAP at this time
--- NOTE | 2023-12-13 03:43 | NUR ---
up to BSC, 1PA
--- NOTE | 2023-12-13 04:10 | NUR ---
Assisted RN with blood sugar check. Recorded in eMAR-WNL. No other needs expressed by Pt. Call light left in reach.
--- NOTE | 2023-12-13 04:10 | NUR ---
while getting pt up from BSC become unsteady and shaky, Pt has a DexComG6 glucose reader which he placed a new one late this shift on L upper abd. the reader said it was low glucose. Pt staed "I have not calibrated yet, it always reads low until calibrated, my will bring it this am". Back to bed 1PA, CBG obtained reads 94. pt staed "I feel better". Back to bed. on room air, HOB elevated. IVf infusing, woound vac to L toe and f/c patent. L leg elevated. contineus to assess for hypoglycemia pain, no c/o pain at this time. pleasant and cooperative, SCD's in place
[2023-12-13 05:32] LABS: BASOPHILS 0.3 % (0-2); EOSINOPHILS 1.8 % (0-6); HEMOGLOBIN 12.7 g/dL (12.0-18.0); LYMPHOCYTES 22.4 % (24-44); MCH 31.9 (27-36); MCHC 33.4 g/dl (30-36); MCV 95.6 fl (81-99); MONOCYTES 12.2 % (0-12); NEUTROPHILS 63.3 % (39-80); PLATELET COUNT 168 K/uL (140-440); RBC 3.98 M/ul (4.3-5.7); RDW 12.9 (10.5-15.0)
[2023-12-13 05:55] LABS: ANION GAP 14.7 (7-21); BUN/CREATININE RATIO 17.24 (6.0-28.6); CALCIUM 8.4 mg/dL (8.5-10.1); CREATININE, SERUM 0.87 mg/dL (0.70-1.30); POTASSIUM 3.7 mmol/L (3.5-5.1)
--- NOTE | 2023-12-13 06:01 | NUR ---
Resting, eyes closed, using home CPAP, post op CPOX on at bedside. wound vac to L big toe patent, dreining ss drainage, decreased redness and edema noted. IVF infusing LFA. f/c patent draining clear yellow urine
--- NOTE | 2023-12-13 07:17 | NUR ---
REPORT RECEIVED FROM ASSISTANT TO THE VICE PRESIDENT RN RAMIRO. PATIENT IS LYING IN BED WITH EYES CLOSED AND RESPIRATIONS ARE EVEN AND UNLABORED. CPAP IN PLACE WITH THE CPOX AT BEDSIDE. CALL LIGHT AND PERSONAL BELONGINGS ARE WITHIN REACH.
--- NOTE | 2023-12-13 10:10 | NUR ---
0900 JARDIANCE ADMINISTERED PER THE EMAR. FULL ASSESSMENT COMPLETE AND DOCUMENTED IN THE CHART. CANCINO CARE AND LILIA CARE COMPLETE. PATIENT IS ALERT AND ORIENTED TIMES FOUR. LUNG SOUNDS ARE CLEAR IN ALL LUNG PEREZ BILATERALLY. PATIENT IS ON ROOM AIR. PATIENT USING PERSONAL CPAP AT NIGHT. PATIENT WITH ASSISTANCE TO BATHROOM WITH 1PA AND LINE AND TUBE MANAGEMENT. BOWEL TONES ARE ACTIVE IN ALL FOUR QUADRANTS. PATIENT IS ON A 60 GRAM CARBOHYDRATE DIET. PATIENT HAD A BOWEL MOVEMENT 12/13/23. CARDIAC WITH NORMAL S1 AND S2 ON AUSCULTATION. RADIAL AND PEDAL PULSES ARE STRONG BILATERALLY. CAPILLARY REFILL IN THE UPPER AND LOWER EXTREMITIES BILATERALLY ARE LESS THAN 3 SECONDS. SENSATION INTACT WITH NO COMPLAINTS OF NUMBNESS AND TINGLING. RIGHT GREAT TOES WITH WOUND VAC IN PLACE WITH RED DRAINGE IN THE COLLECTION CANISTER. SHINS ARE UMU BILATERALLY. BRUISE NOTED ON THE RIGHT SECOND TOENAIL. SCAB NOTED ON THE RIGHT THIRD TOE PAD. IV SITE IS CLEAN, DRY, AND INTACT. IV FLUSHED WITH 10 ML NORMAL SALINE, AND LR IS INFUSING AT 85 ML/HR. PATIENT STATED NO FURTHER NEEDS AT THIS TIME. CALL LIGHT AND PERSONAL BELONGINGS ARE WITHIN REACH.
--- NOTE | 2023-12-13 12:26 | NUR ---
PATIENT IS LYING IN BED WITH EYES CLOSED AND RESPIRATIONS ARE EVEN AND UNLABORED. LUNCH TRAY IS AT THE BEDSIDE. CALL LIGHT AND PERSONAL BELONGINGS ARE WITHIN REACH.
[2023-12-13] MEDS ORDERED: TAMSULOSIN HCL 0.4 MG CAP PO ONE (13:30)
--- NOTE | 2023-12-13 13:37 | OR ---
[facility] [address], [place] [address] Signed DATE OF OPERATION: 12/12/2023 SURGEON: Greta Doty MD PREOPERATIVE DIAGNOSES: 1. Severe necrotizing infection of left great toe, possible osteomyelitis, left distal proximal phalanx. 2. History of blunt force trauma left toe greater than one year and recent soft tissue infection, treated. 3. Diabetes mellitus. 4. Peripheral neuropathy. 5. Fungal toe infection, left great toenail. POSTOPERATIVE DIAGNOSES: 1. Severe necrotizing infection of left great toe, possible osteomyelitis, left distal proximal phalanx. 2. History of blunt force trauma left toe greater than one year and recent soft tissue infection, treated. 3. Diabetes mellitus. 4. Peripheral neuropathy. 5. Fungal toe infection, left great toenail. 6. Probable intra-articular infectious process also and bone chip separate from distal phalanx. PROCEDURES: 1. Debridement of soft tissue, left great toe including skin, subcutaneous tissue, necrotic tendinous material, and bone. 2. Removal of bone chip left distal toe phalanx. 3. Bone biopsy, left proximal distal phalanx. 4. Application of left toe wound VAC device. 5. Removal of left great toenail. ANESTHESIA: Greta Polo CRNA, general LMA. INDICATION: This 58-year-old diabetic man has peripheral neuropathy. He is previously a patient Dr. Ambrose. He has relatively well controlled blood sugars. One year ago, he suffered blunt injury to his left great toe and has had problems with recurrent episodic infection ever since. He is under the care of Dr. Carlos Woods, pit inspector. At some time in the Electronically Signed By: GRETA DOTY MD 12/13/23 1337 PATIENT NAME: JEFFREY VARGAS OPERATIVE REPORT DATE OF : 69 REPORT #: [id number] PHYSICIAN: GRETA DOTY MD PCP: MELISSA AMBROSE MD REPORT IS CONFIDENTIAL AND NOT TO BE RELEASED WITHOUT AUTHORIZATION [facility] [address] [place], [place] [address] Signed past, he had associated laceration on the plantar aspect of the left great toe, which under the care of Dr. Woods has been generally healing up. A week ago, however, he had the onset of significant inflammation and swelling and erythema. Two days ago, he was prescribed oral antibiotic cefadroxil by Dr. Woods, but last night presented to the emergency room and evaluated by Dr. Mitchell Wilkerson with necrotic skin over the dorsum of the left great toe, forefoot cellulitis and obvious gangrenous changes of portions of the left great toe. He additionally and incidentally had a chronic left great toenail fungal infection by clinical impression. He was admitted to the hospital, given intravenous antibiotics, IV medication including IV fluids and evaluation confirms improvement of left forefoot cellulitis but persistence obviously of necrotic tissue in the dorsum of the left great toe. I requested a plain x-ray of the foot, which does show what appears to be a bone chip from the left distal phalangeal segment of the great toe, but also lucency of the bone suggestive of chronic osteomyelitis of the left distal phalanx of the great toe. The patient clearly needs debridement of the necrotic tissue and likely will require amputation of some level. The patient declines any amputation at this time, but does agree to debridement and efforts for salvage of the foot itself. The risk of bleeding, infection, and other unforeseen complications was reviewed with him in detail. He understands and wished to proceed. FINDINGS: Necrotic tissue was certainly noted over the dorsum of the left great toe extending to the proximal metatarsal to some degree. Webspace progression of infection was noted as well, but was debrided back to normal tissue. The great toenail was removed as well. Debridement included skin, subcutaneous tissue, tendinous material and actually bone. The joint space itself between the distal phalanx and more proximal phalangeal segment did show signs of infection with soft mushy bone in the distal portion. Bone biopsies for culture and pathology were taken as well. At conclusion, complete debridement of necrotic tissue was accomplished and irrigation with Irrisept was undertaken. It is likely he will require a distal phalangeal segment amputation and a more proximal amputation may additionally be necessary. Preservation of the plantar aspect of the soft tissue was undertaken so as to provide a viable flap on the eventuality of such an amputation. A wound VAC device was used as well. DESCRIPTION OF PROCEDURE: The patient was brought to the operating room, given a general LMA type anesthetic and antibiotic piperacillin. The left great toe and all of the lower extremity below the knee was prepared with a Betadine based solution and draped sterilely. Debridement of the necrotic tissue over the dorsum of the left toe was undertaken with 15 blade. Wide Electronically Signed By: GRETA DOTY MD 12/13/23 1337 PATIENT NAME: JEFFREY VARGAS OPERATIVE REPORT DATE OF : 69 REPORT #: [id number] PHYSICIAN: GRETA DOTY MD PCP: MELISSA AMBROSE MD REPORT IS CONFIDENTIAL AND NOT TO BE RELEASED WITHOUT AUTHORIZATION [address] [address] Signed resection was undertaken down to a mushy necrotic base overlying the phalanx itself. Excision was taken medially as well. The necrotizing infection appeared to enter to the webspace of the left great toe. This was debrided with a rongeur back to healthy bleeding tissue. Complete debridement of the soft tissue was undertaken. The joint space itself appeared to be involved with necrotic tissue and this was Gram stain and cultured. Bone biopsy was taken of the base of the left distal phalanx of the great toe with a rongeur as well. Some was sent for culture and other to pathology. Irrigation with Irrisept was undertaken throughout. It is highly probable he will require some level of toe amputation, but the volar aspect of the soft tissue is preserved and may serve as a useful plantar flap for amputation in the near future. Wound VAC dressing was applied mmHg suction. He tolerated the procedure well, was extubated and taken to recovery room in good condition. Blood loss was less than 20 mL in aggregate. Sponge, needle and instrument count was reported as correct x3. MD MCKINLEY Grant/MAYDA /[id number] cc: DO Carlos Plaza DPM Dr. Brian Sabowitz Copies: JERRY HUNTER TERROL DPM ~ Electronically Signed By: GRETA DOTY MD 12/13/23 1337 PATIENT NAME: JEFFREY VARGAS OPERATIVE REPORT DATE OF : 69 REPORT #: [id number] PHYSICIAN: GRETA DOTY MD PCP: MELISSA AMBROSE MD REPORT IS CONFIDENTIAL AND NOT TO BE RELEASED WITHOUT AUTHORIZATION
--- NOTE | 2023-12-13 15:36 | NUR ---
PATIENT IS LYING IN BED AND LOOKING ON THEIR PHONE. RESPIRATIONS ARE EVEN AND UNLABORED WITH A CPOX AT THE BEDSIDE. PATIENT WITH NO COMPLAINTS OF PAIN AT THIS TIME. PATIENT WITH NUMBNESS AND TINGLING IN THE UPPER AND LOWER EXTREMITIES BILATERALLY. PEDAL PULSES ARE STRONG BILATERALLY AND CAPILLARY REFILL IS LESS THAN 3 SECONDS IN THE LOWER EXTREMITIES BILATERALLY. WOUND VAC ON THE LEFT GREAT TOE INTACT. RED DRAINGE NOTED IN THE COLLECTION CANISTER. PATIENT STATED NO FURTHER NEEDS AT THIS TIME. CALL LIGHT AND PERSONAL BELONGINGS ARE WITHIN REACH.
--- NOTE | 2023-12-13 17:28 | NUR ---
PATIENT IS SITTING UPRIGHT IN BED. WOUND VAC IN PLACE AND DELIVERING THERAPY. PATIENT WITH CANCINO CATHETER DRAINING LIGHT YELLOW URINE. ZOSYN INFUSION ALMOST COMPLETE. PATIENT PLANNING TO WALK AT 1800. PATIENT DINNER TRAY REMOVED AT THIS TIME. PATIENT STATED NO FURTHER NEEDS, CALL LIGHT AND PERSONAL BELONGINGS ARE WITHIN REACH.
--- NOTE | 2023-12-13 18:45 | NUR ---
PATIENT AMBULATED ONE LAP ON THE MEDICAL SURGICAL FLOOR. PATIENT TOLERATED WELL. LLE ELEVATED ON A PILLOW. PATIENT WITH NO COMPLAINTS OF PAIN AT THIS TIME. PATIENT EDUCATED ON THE IMPORTANCE OF AMBULATING POST OP. PATIENT EXPRESSED UNDERSTANDING. PATIENT STATED NO FURTHER NEEDS AT THIS TIME. CALL LIGHT AND PERSONAL BELONGINGS ARE WITHIN REACH.
--- NOTE | 2023-12-13 19:29 | NUR ---
REPORT RECEIVED FROM DAY RN. PATIENT RESTING IN BED READING ON HIS PHONE. IVF INFUSING WITH NO ISSUES. WOUND VAC IN PLACE AND FUNCTIONING WNL. PATIENT DENIES ANY NEEDS AT THIS TIME. CALL LIGHT WITHIN REACH.
--- NOTE | 2023-12-13 20:34 | NUR ---
PATIENT RESTING IN BED. HS MEDICATIONS GIVEN. ABX INFUSSION STARTED. PATIENT DENEIS ANY PAIN OR DISCOMFORT AT THIS TIME. LUNGS CTA, BOWEL TONES ACITVE X 4 QUADRANTS. WOUND VAC IN TACT AND FUNCTIONING WNL. IV SITE PATENT. CANCINO CATHERTER DRAINING YELLOW URINE. BILATERAL LOWER EXTERMITIES WITH MILD EDEMA. ERYTHERMIA NOTED TO BLLE. PEDAL PULSES STRONG. LEFT LEG ELEVATED. NO FURTHER NEEDS AT THIS TIME. CALL LIGHT WITHIN REACH.
--- NOTE | 2023-12-13 21:56 | NUR ---
PATIENT RESTING IN BED AWAKE READING ON HI PHONE. LEFT FOOT ELEVATED. WOUND VAC FUNCTIONING WNL. IV ABX INFUSING WITH NO ISSUES. DENIES ANY NEEDS AT THIS TIME. CALL LIGHT WITHIN REACH.
--- NOTE | 2023-12-13 23:38 | NUR ---
PATIENT UP OOB. WALKED 2 LAPS AROUD THE UNIT. TOLLERATED WELL.
[2023-12-14] VITALS (9 sets, daily range): BP systolic 118–147; BP diastolic 64–74
--- NOTE | 2023-12-14 | NUR ---
PATIENT UP TO BATHROOM. TOLLERATED WELL. PATIENT USED BATH WIPES TO SPIT BATH. NEW GOWN GIVEN. FRESH BEDDING ON HIS BED. LEFT LEG ELEVATED. WOUND VAC FUNCTIONING WNL. IV SITE WNL, FLUIDS INFUSING WITH NO ISSUES. NO FURTHER NEEDS AT THIS TIME CALL LIGHT WITHIN REACH.
--- NOTE | 2023-12-14 02:09 | NUR ---
PATIENT RESTING IN BED. SCHEDULED IV ABX STARTED. PATIENT IV SITE REMAINS PATENT. CPAP ON, RESPIRATIONS EVEN AND UNLABORED. NO NEEDS AT THIS TIME. CALL LIGHT WITHIN REACH.
--- NOTE | 2023-12-14 04:00 | NUR ---
PATIENT IS RESTING IN BED WITH EYES CLOSED. RESPIRATIONS EVEN AND UNLABORED. CPAP ON AND FUNCTIONING WNL. CALL LIGHT WITHIN REACH.
--- NOTE | 2023-12-14 05:28 | NUR ---
PATIENT RESTING IN BED WITH EYES CLOSED. RESPIRARTIONS EVEN AND UNLABORED. VSS. DENIES ANY PAIN OR DISCOMFORT AT THIS TIME. IVF RUNNING WITH NO ISSUES OR CONCERNS. IV SITE PATENT. WOUND VAC TO LEFT GREAT TOE REMAINS WNL. CANCINO DRAINING YELLOW STRAW COLORED URINE. PATIENT RESTING WITH HIS CPAP IN PLACE. DENIES ANY NEEDS AT THIS TIME. CALL LIGHT WITHIN REACH.
[2023-12-14 05:41] LABS: BASOPHILS 0.4 % (0-2); EOSINOPHILS 2.1 % (0-6); HEMATOCRIT 38.8 % (35.0-50.0); HEMOGLOBIN 12.8 g/dL (12.0-18.0); LYMPHOCYTES 27.6 % (24-44); MCH 31.4 (27-36); MCHC 32.8 g/dl (30-36); MCV 95.6 fl (81-99); MONOCYTES 11.7 % (0-12); NEUTROPHILS 58.2 % (39-80); PLATELET COUNT 189 K/uL (140-440); RBC 4.07 M/ul (4.3-5.7); RDW 13.3 (10.5-15.0)
[2023-12-14 06:05] LABS: ALBUMIN 2.5 g/dL (3.4-5.0); ALBUMIN/GLOBULIN RATIO 0.63 (1.1-2.4); ANION GAP 12.9 (7-21); BILIRUBIN, TOTAL 0.4 ng/dL (0.2-1.0); BUN/CREATININE RATIO 13.82 (6.0-28.6); CALCIUM 8.3 mg/dL (8.5-10.1); CREATININE, SERUM 0.94 mg/dL (0.70-1.30); POTASSIUM 3.9 mmol/L (3.5-5.1); PROTEIN, TOTAL 6.5 g/dL (6.4-8.2)
--- NOTE | 2023-12-14 07:03 | NUR ---
REPORT RECEIVED FROM KILN DOOR BUILDER RN ALVIN. PATIENT IS LYING IN BED WITH EYES CLOSED AND RESPIRATIONS ARE EVEN AND UNLABORED. PATIENT WITH HOME CPAP ON. CALL LIGHT AND PERSONAL BELONGINGS ARE WITHIN REACH.
--- NOTE | 2023-12-14 08:15 | NUR ---
PATIENT RESTING IN BED AT THIS TIME. CALL LIGHT WITHIN REACH, NO FURTHER NEEDS AT THIS TIME.
--- NOTE | 2023-12-14 09:20 | NUR ---
0800 AND 0900 MEDICATIONS ADMINISTERED PER THE EMAR. FULL ASSESSMENT COMPLETE AND DOCUMENTED IN THE CHART. PATIENT IS ALERT AND ORIENTED TIMES FOUR. PATIENT WITH NO COMPLAINTS OF PAIN AT THIS TIME. LUNG SOUNDS ARE CLEAR IN ALL LUNG PEREZ BILATERALLY. PATIENT IS ON ROOM AIR WITH HIS PERSONAL CPAP IN THE ROOM AT NIGHT. NORMAL S1 AND S2 ON AUSCULTATION. RADIAL AND PEDAL PULSES ARE STRONG BILATERALLY. SENSATION INTACT. PATIENT WITH NUMBNESS AND TINGLING IN THE UPPER AND LOWER EXTREMITIES BILATERALLY AT BASELINE. SHINS ARE UMU BILATERALLY. BOWEL TONES ARE ACTIVE IN ALL FOUR QUADRANTS. IV FLUSHED WITH 10 ML NORMAL SALINE. IV DRESSING IS CLEAN, DRY, AND INTACT. LR IS INFUSING AT 85 ML/HR AND ZOSYN IS INFUSING AT 25 ML/HR. WOUND VAC ON THE LEFT GREAT TOE INTACT. DRESSING ADDED TO THE DRESSING TO PREVENT LEAKING. RIGHT 2ND TOENAIL BRUISED AND THE R 3RD TOE WITH A SCAB ON THE UNDER SIDE. PATIENT STATED NO FURTHER NEEDS AT THIS TIME. CALL LIGHT AND PERSONAL BELONGINGS ARE WITHIN REACH. CALL LIGHT AND PERSONAL BELONGINGS ARE WITHIN REACH.
--- NOTE | 2023-12-14 09:50 | NUR ---
ORDERS AND CLINICALS FAXED TO [facility] FOR WOUND VAC.
--- NOTE | 2023-12-14 10:10 | NUR ---
Board has been updated and call light has been plaed within reach. No requests from patient at this time
--- NOTE | 2023-12-14 11:15 | NUR ---
PATIENT GIVEN A MEAL MENU. WOUND VAC IN PLACE AND PROVIDING THERAPY. PATIENT STATED NO FURTHER NEEDS AT THIS TIME. CALL LIGHT AND PERSONAL BELONGINGS ARE WITHIN REACH.
[2023-12-14] MEDS ORDERED: TAMSULOSIN HCL 0.4 MG CAP PO SCH (11:24)
--- NOTE | 2023-12-14 11:54 | NUR ---
VISITED DURING SPIRITUAL CARE ROUNDS. LISTENED ATTEMTIVELY PT TALKED OF HEALTH JOURNEY TO THIS POINT. PT EXHIBITED SIGNIFICANT INSIGHT INTO CONDITION AND PROGNOSIS; EXPRESSED INTENT TO AVOID SIMILAR INJURIES; ACCEPTED PRAYERS FOR RAE AND COMPLETE RECOVERY. PROVIDED SUPPORTIVE PRESENCE, LISTENED EMPATHETICALLY, PROVIDED HOSPITALITY, ANTICIPATORY GUIDANCE, PRAYER. PT EXPRESSED GRATITUDE.
--- NOTE | 2023-12-14 12:01 | NUR ---
UR CLINICAL REVIEW: [facility]-PATIENT MEETS INPATIENT CRITERIA [facility] INPATIENT 12/12/23 @ 1027 ORDER MATCHES REG STATUS SUBMITTED CLINICAL FOR AUTH 12/14/23 @ 1200 DISCHARGE TO HOME PENDING CULTURES 12/15/23
--- NOTE | 2023-12-14 12:11 | NUR ---
PATIENT ALERT AND ORIENTED, AWAKE IN BED. STATES HE LIVES IN HOUSE WITH , STEPSON AND ELDERLY FAMILY MEMBER. THERE ARE STAIRS IN HOME, HE DOES NOT HAVE ISSUES WITH THE STAIRS NORMALLY. DEMOGRAPHICS VERIFIED WITH PATIENT. STATES HIS PCP IS NOW DR. HUNTER. HE HAS A CPAP, NO OTHER DME. REMAINS ABLE TO DRIVE. DENIES ANY FINANCIAL ISSUES. PATIENT INFORMED OF NEED FOR WOUND VAC AT [place] AND REQUEST HAS BEEN SENT. INFORMED HE WILL BE REFERRED TO OUTPATIENT/DAY SURGERY FOR DRESSING CHANGES 2-3 TIMES PER WEEK PER DR. DOTY'S ORDERS WHEN DISCHARGED. VERBALIZES UNDERSTANDING. DENIES OTHER NEEDS. INSTRUCTED TO INFORM STAFF IF NEEDS ARISE.
[2023-12-14] MEDS ORDERED: LATANOPROST2.5 ML OU (12:45)
[2023-12-14] MEDS ORDERED: NOVOLOG FL100 UNIT/1 SUB-Q (12:46)
[2023-12-14] MEDS ORDERED: CLOBETASOL PROP15 GM TOP (12:48)
[2023-12-14] MEDS ORDERED: VITAMIN D3125 MC2 PO (12:54)
--- NOTE | 2023-12-14 13:54 | NUR ---
1400 ZOSYN INFUSION STARTED. VITAL SIGNS TAKEN AND DOCUMENTED IN THE CHART. PATIENT WITH NO COMPLAINTS OF PAIN AT THIS TIME. IV DRESSING IS CLEAN, DRY, AND INTACT. IV FLUSHED WITH 10 ML NORMAL SALINE. LR IS INFUSING AT 85 ML/HR AND ZOSYN IS INFUSING AT 25 ML/HR. WOUND VAC ON THE LEFT GREAT INTACT WITH VACUUM THERAPY. SMALL AMOUNT OF DRAINAGE NOTED IN THE COLLECTION CANISTER. CAPILLARY REFILL IS LESS THAN 3 SECONDS IN BILATERAL LOWER EXTREMITIES. PEDAL PULSES ARE STRONG BILATERALLY. PATIENT STATED NO FURTHER NEEDS AT THIS TIME. CALL LIGHT AND PERSONAL BELONGINGS ARE WITHIN REACH.
--- NOTE | 2023-12-14 14:16 | NUR ---
PT UP FROM BED TO AMBULATE IN [place]STELLO. PT TOLERATED WELL. 3 LAPS AROUND RN STATION. PT BACK TO BED WITH LEFT LEG ELEVATED ON PILLOWS. PT DENIES ANY NEEDS. CALL LIGHT WITHIN REACH.
--- NOTE | 2023-12-14 14:39 | NUR ---
PATIENT IS LYING IN BED WITH LEFT LOWER EXTREMITY ELEVATED ON 5 PILLOWS AND IT ABOVE HEART LEVEL. PATIENT STATED "I CAN TOLERATED FOR A LITTLE BIT". PATIENT EDUCATED ON THE IMPORTANCE OF KEEPING THE EXTREMITY ELEVATED. PATIENT STATED NO NEEDS AT THIS TIME, CALL LIGHT AND PERSONAL BELONGINGS ARE WITHIN REACH.
--- NOTE | 2023-12-14 17:26 | NUR ---
PATIENT IS SITTING UPRIGHT IN BED AND EATING DINNER. PATIENT STATED NO NEEDS AT THIS TIME. CALL LIGHT AND PERSONAL BELONGINGS ARE WITHIN REACH.
--- NOTE | 2023-12-14 17:40 | NUR ---
LILIA CARE AND CANCINO CARE COMPLETE AND PATIENT TOLERATED WELL. PATIENT IS LYING IN BED WITH THE LLE ELEVATED ON SEVERAL PILLOWS ABOVE HEART LEVEL. PATIENT STATED NO FURTHER NEEDS AT THIS TIME. CALL LIGHT AND PERSONAL BELONGINGS ARE WITHIN REACH.
--- NOTE | 2023-12-14 18:23 | NUR ---
medications reconciled using pharmacy records and patient interview
[2023-12-14] MEDS ORDERED: buPROPion HCL 150 MG TABCR PO SCH (21:00)
--- NOTE | 2023-12-14 21:32 | NUR ---
PT AWAKE, HAD BEEN AMBULATING HALLWAYS EARLIER. IN BED. L BIG TOE WPOUND VAC IN PLACE, ELEVATED W 4-5 PILLOES, DECREAED EDEMA AND REDNESS NOTED. ON FOOT AND THAT LEG. SCABBED UNDER 3RD TO AREA NO CHANGES. IVF INFUSING LA COOPERATIVE WITH VITALS AND ASSESSMENT. NO C/O PAIN, USED OWN DEXCOM READER READINGS 109. NO COVERAGE NEEDED, PLEASANT AND COOPERATIVE
[2023-12-15] VITALS (9 sets, daily range): BP systolic 119–133; BP diastolic 43–69
--- NOTE | 2023-12-15 00:21 | NUR ---
REASTING, EYS CLOSED, USING HOME CPAP IN PLACE, L BIG TOE WOUND VAC IN PLACE ELEVATED WITH 5 PILLOWS.
--- NOTE | 2023-12-15 01:35 | NUR ---
USING HOME CPAP, NO C/O PAIN, L TOE WOUND VACUUM IN PLACE, L FOOT ELEVATED IN PILLOWS
--- NOTE | 2023-12-15 02:40 | NUR ---
PT AWAKE, OFF CPAP, PLAYING WITH PHONE, F/C PATENT, WOUND VAC IN PLACE L BIG TOES, ELEVATED WITH 5 PILLOWS. NO C/O PAIN
--- NOTE | 2023-12-15 03:30 | NUR ---
Awakens easily, playing with phone, has not sleep this shift. home CPAP at bedside. L foot w wound vac over L big toe, decreaesd edema noted, foot elevated with 5 pillows, f/c patent
--- NOTE | 2023-12-15 05:29 | NUR ---
currently reasting, eyes closed, awakes easily, using home CPAP, no distress, IVF infusing w/o problems. f/c patent. L big toe wound vac in place, elevated in pillows. decreaed redness and edema to foot noted. no changed scabbed over areas R 3rd toe. Ambulated in room earlier on shift, tolerated well. Pt aware of f/c may be dc'd this am, post f/c expectations and post residual checks explained, staed understanding. Has not slept much this shift. No c/o pain.
--- NOTE | 2023-12-15 07:29 | NUR ---
Report received from THA Michelle. Patient resting in bed with eyes closed, CPAP on, respirations even and unlabored. Call light in reach.
--- NOTE | 2023-12-15 10:50 | NUR ---
PATIENT RESTING IN BED WHILE TALKING ON CELL PHONE. LLE ELEVATED ABOVE LEVEL OF THE HEART. CALL LIGHT IN REACH.
--- NOTE | 2023-12-15 11:35 | NUR ---
VISITED DURING SPIRITUAL CARE ROUNDS. PT APPEARED TO BE SLEEPING. DID NOT DISTURB. PROVIDED PRAYER.
--- NOTE | 2023-12-15 12:11 | NUR ---
SPOKE WITH CONI LIMON FROM [facility]. STATES SHE TRIED TO CALL PATIENT AND WAS UNABLE TO SPEAK WITH HIM. WILL NEED A COPAY FOR WOUND VAC TO BE SHIPPED. PATIENT UPDATED AND INFORMATION PROVIDED TO HIM TO CONTACT CONI. STATES HE NEEDS TO GET INFORMATION FROM , BUT PLANS TO CALL AND PAY COPAY TO RECEIVE WOUNDVAC. CONI STATES WOUND VAC CAN NOT BE SHIPPED UNTIL PATIENT PAYS COPAY, PATIENT NOTIFIED OF THIS. VERBALIZES UNDERSTANDING. DR. DOTY NOTIFIED WOUND VAC HAS NOT YET BEEN SHIPPED.
--- NOTE | 2023-12-15 13:21 | NUR ---
PATIENT RESTING IN BED WHILE ON CELL PHONE. LLE EXTREMITY NOTED TO HAVE SLID OFF PILLOWS. ADJUSTED PILLOWS AND REMINDED PATIENT TO KEEP LLE ELEVATED.
--- NOTE | 2023-12-15 16:07 | NUR ---
FLUID REMOVED FROM CANCINO CATHETER BALLOON, CATHETER REMOVED, TIP INTACT. PT TOLERATED WELL.
--- NOTE | 2023-12-15 17:20 | NUR ---
PATIENT REPORTS HE WAS UP TO BR TO VOID POST CATHETER REMOVAL AND HAD A BOWEL MOVEMENT. REQUESTED HE USE URINAL TO MEASURE OUTPUT. DENIES NEEDS. CALL LIGHT IN REACH.
--- NOTE | 2023-12-15 18:42 | NUR ---
NPWT DRESSING TO LEFT HALLUX, CHANGED. OLD DRESSING REMOVED, 1 PIECE OF BLACK FOAM REMOVED FROM WOUND BASE. NOTED PERIWOUND SKIN IS MACERATED. WOUND AND PERIWOUND SKIN CLEANSED WITH NS, LOOSE DEBRIDES REMOVED. WOUND PATTED DRY. CAVILON SKIN PROTECTANT APPLIED TO PERIWOUND SKIN AND ALLOWED TO DRY. EXTRA THIN DUODERM HYDROCOLLOID DRESSING CUT IN STRIPS AND APPLIED TO PERIWOUND SKIN UP TO WOUND EDGES TO PROTECT FRAGILE AND MACERATED PERIWOUND SKIN. 2 TOTAL PIECES OF ADAPTIC CONTACT LAYER PLACED IN WOUND BED, 1 PIECE OVER EXPOSED TENDON AND 1 PIECE OVER EXPOSED BONE. REMAINING WOUND BASE IS 100% BEEFY RED AND MOIST. 1 PIECE OF BLACK FOAM PLACED IN WOUND BASE AND SECURED WITH DRAPE. TRACK PAD APPLIED WITH SUCTION AT 120 MM HG, SEAL OBTAINED AND MAINTAINED, NO LEAKS. TUBING SECURED LIGHTY WITH COBAN TO ANKLE. PT TOLERATED DRESSING CHANGE WELL. PICTURES OBTAINED SEE PAPER CHART. NEXT DRESSING CHANGE DUE DECEMBER 16 OR .
--- NOTE | 2023-12-15 19:57 | NUR ---
REPORT RECIEVED FROM DAY SHIFT RN. PATIENT RESTING IN BED ON PHONE. PATIENT HAS NO CURRENT NEEDS. CALL LIGHT IN REACH.
--- NOTE | 2023-12-15 20:28 | NUR ---
PATIENT RESTING IN BED. VS AND I&Os OBTAINED AND RECORDED. SCHEDULED MEDICATIONS ADMINISTERED. PATIENT HAS NO FURTHER NEEDS. CALL LIGHT IN REACH.
--- NOTE | 2023-12-15 23:16 | NUR ---
PATIENT RESTING IN BED ON PHONE. ASSESSMENT COMPLETE. BLE ELAVATED ABOVE HEART. BILAT PULSES PRESENT UPON PALPATION. PATIENT DENIES PAIN. NO FURTHER NEEDS. CALL LIGHT IN REACH.
[2023-12-16] VITALS (8 sets, daily range): BP systolic 114–133; BP diastolic 59–80
--- NOTE | 2023-12-16 01:14 | NUR ---
PATIENT RESTING IN BED ON PHONE. NO FURTHER NEEDS. CALL LIGHT IN REACH.
--- NOTE | 2023-12-16 01:58 | NUR ---
PATIENT RESTING IN BED. SCHEDULED IV ABX INFUSING PER ORDER. PATIENT LLE ELEVATED ABOVE LEVEL OF HEART. PATIENT DENIES SCDs. CALL LIGHT IN REACH.
--- NOTE | 2023-12-16 03:36 | NUR ---
PATIENT RESTING IN BED ON BACK WITH EYES CLOSED. CPAP IN PLACE. RESPIRATIONS EVEN AND UNLABORED. LLE ELEVATED ON PILLOWS ABOVE LEVEL OF HEART.
--- NOTE | 2023-12-16 05:22 | NUR ---
PATIENT RESTING IN BED. VS AND I&Os OBTAINED AND RECORDED. PATIENT LLE ELEVATED ABOVE LEVEL OF HEART. PULSES PALPATED ON BLE. FRESH WATER PROVIDED. PATIENT HAS NO FURTHER NEEDS. CALL LIGHT IN REACH.
--- NOTE | 2023-12-16 07:05 | NUR ---
REPORT RECEIVED FROM THA SKINNER. PATIENT RESTING IN BED WITH CPAP ON. RESPIRATIONS EVEN AND UNLABORED. CALL LIGHT IN REACH.
--- NOTE | 2023-12-16 08:03 | NUR ---
PT IN BED. BS TAKEN. BS 87. PT UP TO BR, SBA. PT LINENS CHANGED. PT BACK TO BED. PT DENIES ANY NEEDS AT THIS TIME. CALL LIGHT IN REACH
[2023-12-16] MEDS ORDERED: DAPTOmycin 500 MG/10 ML VIAL IV SCH (09:00)
--- NOTE | 2023-12-16 09:06 | NUR ---
IN PT ROOM. PT IN BED. I AND O COMPLETE. PT DENIES ANY NEEDS. CALL LIGHT IN REACH
--- NOTE | 2023-12-16 09:59 | NUR ---
UR CONCURRENT REVIEW: [facility]- REVIEW COMPLETED FOR 12/15/23. PATIENT DOES NOT MEET DISCHARGE, VARIANCE ADDED. [facility] INPT 12/12/23 DISCHARGE TO HOME PENDING NEED FOR ONGOING ABX 12/18/23
[2023-12-16] MEDS ORDERED: TRIMETHOPRIM/SULFAMETHOXAZOLE 1 EA TAB PO SCH (11:14)
--- NOTE | 2023-12-16 11:33 | NUR ---
PT IN BED. PT CHECKED DEXACOM FOR BG LEVEL. PT BG 128. PT DENIES ANY NEEDS AT THIS TIME, CALL LIGHT IN REACH
--- NOTE | 2023-12-16 13:13 | NUR ---
PT IN BED, VITALS AND IS AND OS COMPLETE. PT DENIES NEEDS, CALL LIGHT IN REACH
--- NOTE | 2023-12-16 17:28 | NUR ---
pt in bed. vitals and is and os complete. ice water refreshed. pt stated that wound vac should have been out for delivery today and will check if his will bring it up. pt denies any needs. call light in reach
--- NOTE | 2023-12-16 19:42 | NUR ---
REPORT RECIEVED FROM DAY SHIFT RN. PATIENT RESTING IN BED AND DENIES FURTHER NEEDS. CALL LIGHT IN REACH. LLE ELEVATED ABOVE LEVEL OF HEART.
--- NOTE | 2023-12-16 20:00 | NUR ---
PATIENT RESTING IN BED. VS AND I&Os OBTAINED AND RECORDED. SCHEDULED MEDICATIONS AND IV ABX INFUSING PER ORDER. IV FLUSHES WNL. PATIENT DENIES PAIN AT THIS TIME. LLE ELEVATED ABOVE HEART WITH PILLOWS. NO FURTHER NEEDS AT THIS TIME. BS WNL. CALL LIGHT IN REACH.
--- NOTE | 2023-12-16 22:03 | NUR ---
PATIENT RESTING IN BED. LLE ELEVATED ON PILLOW ABOVE THE HEART. BLE PULSES PRESENT. PATIENT DENIES NEEDS AT THIS TIME. CALL LIGHT IN REACH.
--- NOTE | 2023-12-17 00:09 | NUR ---
PATIENT RESTING IN BED WITH IN ROOM. PATIENT LLE ELEVATED ABOVE LEVEL OF HEART. PAITENT HAS NO FURTHER NEEDS. CALL LIGHT IN REACH.
--- NOTE | 2023-12-17 01:40 | NUR ---
PATIENT RESTING IN BED WITH LEFT LEG ELEVATED. NEW BAG IV FLUID INFUSING PER ORDER. IN ROOM. NO FURTHER NEEDS. CALL LIGHT IN REACH.
--- NOTE | 2023-12-17 03:04 | NUR ---
PATIENT RESTING IN BED WITH EYES CLOSED WITH CPAP IN PLACE. RESPRIATIONS EVEN AND UNLABORED. LLE ELEVATED. NO FURTHER NEEDS. CALL LIGHT IN REACH.
[2023-12-17 05:33] VITALS: BP 121/74
--- NOTE | 2023-12-17 05:35 | NUR ---
PATIENT RESTING IN BED. PULSES PRESENT UPON PALPATION ON BLE. PATIENT LLE ELEVATED ABOVE HEART WITH PILLOWS. FRESH WATER PROVIDED. NO FURTHER NEEDS. CALL LIGHT IN REACH.
--- NOTE | 2023-12-17 05:45 | NUR ---
PT IN BED ASLEEP. I GOT PATIENTS VITALS. I CHARTED THEM. PT HAS CALL LIGHT
[2023-12-17 05:51] VITALS: BP 121/74
--- NOTE | 2023-12-17 07:38 | NUR ---
PT HAS OWN GLUCOMETER TO MEASURE BG LEVELS. RN SAID THIS WAS OKAYED BY DR IN REPORT. RESULT RECORDED IN EMAR
--- NOTE | 2023-12-17 08:12 | NUR ---
recieved report from night nurse at 0730 pt is currently in bed sleeping with cpap machine on. even and unlabored breathing noted. no concerns at this time call light within reach
[2023-12-17 09:28] VITALS: BP 116/64
[2023-12-17 10:29] VITALS: BP 116/64
[2023-12-17] MEDS ORDERED: SULFAMETHOXAZO1 EAC1 PO (12:06)
--- NOTE | 2023-12-17 14:10 | DS ---
[facility] [address], [place] [address] Signed ADMISSION DATE: 12/12/2023 DISCHARGE DATE: 12/17/2023 REASON FOR ADMISSION: Infected left great toe (chronic with development of gangrenous changes). HISTORY OF PRESENT ILLNESS: This 58-year-old white man works at the [employer]. He is and has stepchildren. He has a long-standing history of diabetes and chronic diabetic foot problems. He was rather neglectful of diabetes management in his 20s and 30s, but in the past several years has been more dedicated to his care. He does suffer from diabetic retinopathy, peripheral neuropathy, and other manifestations of diabetes, so his blood sugars are now well controlled generally speaking. Approximately a year ago, he had a significant blister on his left great toe, which did have infection. He was evaluated and treated by Dr. Woods, his oil burner servicer and installer over time, having been seen on an every two week basis from what I gather. The laceration was associated with the blister apparently. He was noted to have increased swelling and progression of problems about a week ago. He called his oil burner servicer and installer, Dr. Woods, noting and was prescribed cefadroxil antibiotic. The patient's swelling and pain worsened and he presents to the emergency room, where he was evaluated by Dr. Wilkerson. His oil burner servicer and installer is out of town and I was consulted in regard to this. Direct hospital admission with IV antibiotics and further evaluation was initiated. The patient noted that there was no "black change" noted only two days prior to his current admission. He does not have much pain related to the infectious and swollen left great toe due to his peripheral neuropathy. He was prescribed Zosyn and daptomycin antibiotic empirically. A plain x-ray of the foot was undertaken, which showed the possibility of osteomyelitis at the base of the distal bony segment and lucency of the bone and possible separate bone chip as well. Upon further discussion with the patient, he had blunt force injury to the left great toe approximately 4-6 weeks ago, which may have accounted for that new finding. He is admitted for further evaluation and care. PERTINENT PHYSICAL EXAMINATION: GENERAL: Showed a very well-developed, well-nourished white male with a BMI of 35.9. NECK: Trachea midline. CHEST: Clear. HEART: Regular without murmur. ABDOMEN: Nondistended and soft. Electronically Signed By: GRETA DOTY MD 12/17/23 1410 PATIENT NAME: JEFFREY VARGAS DISCHARGE SUMMARY DATE OF : 69 REPORT #: [id number] PHYSICIAN: GRETA DOTY MD PCP: MELISSA AMBROSE MD REPORT IS CONFIDENTIAL AND NOT TO BE RELEASED WITHOUT AUTHORIZATION [facility] [address], [place] [address] Signed EXTREMITIES: Showed a bounding 3/3 pulse of the dorsalis pedis on the left side. There is erythema and swelling of the entire forefoot, but most dominantly is noted was a black eschar and necrotic tissue associated with the dorsum of his left great toe. There was an area of healing laceration on the plantar aspect medially. The other toes though erythematous were without sign of gangrenous change. The other foot itself was normal. LABORATORY STUDIES: Showed a white count of 8.7, hematocrit 44.7, and platelets are 180,000. HOSPITAL COURSE: The patient was considered to have gangrenous soft tissue changes of the left great toe. This in combination with his lucency at the base of the distal segment of the left great toe phalanx highly suggestive of osteomyelitis and with a bone chip separate and distinct suggested his long-standing chronic soft tissue infection of the great toe and progressed to osteomyelitis of the bone, possibly through the cortical disruption of bone from his most recent trauma. A combination of microvascular disease, neuropathy, and so forth may contribute to that of course. After much discussion, he did undergo operation on December 12, 2023 confirming severe necrotizing infection of the left great toe, possible osteomyelitis of the left distal phalanx in the proximal portion. Operation consisted of debridement of soft tissue of the area of the great toe including skin, subcutaneous tissue, and necrotic tendinous material and some bone at the base of the left distal toe phalanx. Separate distinct was indeed a bone chip in the area, which was removed also. Cultures were obtained of the soft tissue as well as bone itself. Application of a wound VAC device was undertaken. The wound was irrigated with Irrisept, it is noted. The patient was maintained in a leg elevated position broad-spectrum antibiotic Zosyn (piperacillin) as well as daptomycin (Cubicin). With leg elevation and use of the wound VAC device, he had progressive improvement of the swelling of his forefoot and complete resolution of his edema ultimately. The wound VAC was changed, showing good granulation and some remnant of tendinous tissue. Cultures were returned, which confirmed Staph aureus (not MRSA) as well as a Strep species with reasonable sensitivities including to Levaquin, Cipro and Bactrim oral agents. Resistance was noted to clindamycin, erythromycin, penicillin. Notably a separate bone cultures affirmed the same pathogens. He will be discharged home with the wound VAC in place, anticipating outpatient change of the wound VAC in our [facility] in the next four days on December 20. He is advised to avoid trauma to the area affected and could keep leg elevated as able. I discussed with him the long-term plan. Most likely, he will need distal phalangeal Electronically Signed By: GRETA DOTY MD 12/17/23 1410 PATIENT NAME: JEFFREY VARGAS DISCHARGE SUMMARY DATE OF : 69 REPORT #: [id number] PHYSICIAN: GRETA DOTY MD PCP: MELISSA AMBROSE MD REPORT IS CONFIDENTIAL AND NOT TO BE RELEASED WITHOUT AUTHORIZATION [facility] [address], [place] [address] Signed segment resection and portion of the proximal phalangeal segment with coverage of the remaining soft tissue of the great toe. Alternatively, and probably more definitively and possibly more functionally, a ray amputation above the metatarsal head with a flap closure may provide more safety against progression of osteomyelitis and importantly possibly better function and comfort. We have discussed this in detail and at present he is rather resistant to resectional therapy of any sort at the moment. We will discuss it further. DISCHARGE MEDICATIONS: Include: 1. Bactrim DS one tablet p.o. b.i.d., #30. 2. Gabapentin 400 mg two tablets p.o. b.i.d. 3. Synthroid 200 mcg p.o. daily. 4. Lisinopril 40 mg p.o. daily. 5. Jardiance 25 mg p.o. daily. 6. Torsemide 10 mg p.o. daily. 7. Repatha 140 mg injection subcutaneously Q two weeks. 8. Duloxetine 20 mg p.o. daily. 9. Ozempic 2 mg subcutaneously weekly. 10. Bupropion 300 mg p.o. in morning and at bedtime (split dose 150 and 150). 11. Metformin 1000 mg p.o. b.i.d. 12. Latanoprost 0.005% eyedrops one drop each eye in the evening. 13. NovoLog insulin subcutaneously four times a day based on sliding scale. 14. Clobetasol cream applied topically daily. 15. Vitamin D3 125 mcg, 5000 units daily. DISCHARGE DIAGNOSIS: 1. Necrotizing soft tissue infection left great toe with associated distal segmental osteomyelitis at base, status post debridement and bone biopsy, bone culture, soft tissue culture consistent with Staph aureus, not MRSA and strep species. 2. Application of wound VAC. 3. Peripheral neuropathy related to diabetes mellitus. 4. Known diabetic retinopathy. 5. Hypertension. 6. Hypothyroidism. He will return to the Wound Care Clinic as previously described. I will see him in the Wound Clinic as noted also. He should also make appointment with his primary care provider, Dr. Ulices Hunter. Electronically Signed By: GRETA DOTY MD 12/17/23 1410 PATIENT NAME: JEFFREY VARGAS DISCHARGE SUMMARY DATE OF : [birth year] REPORT #: [id number] PHYSICIAN: GRETA DOTY MD PCP: MELISSA AMBROSE MD REPORT IS CONFIDENTIAL AND NOT TO BE RELEASED WITHOUT AUTHORIZATION [facility] [address] [facility] [place], [place] [address] Signed Greta Doty MD JM/MODL /[id number] cc: DO Dr. Mitchell Plaza Copies: ULICES HUNTER DO ~ Electronically Signed By: GRETA DOTY MD 12/17/23 1410 PATIENT NAME: JEFFREY VARGAS DISCHARGE SUMMARY DATE OF : 69 REPORT #: [id number] PHYSICIAN: GRETA DOTY MD PCP: MELISSA AMBROSE MD REPORT IS CONFIDENTIAL AND NOT TO BE RELEASED WITHOUT AUTHORIZATION
--- NOTE | 2023-12-17 14:20 | NUR ---
Discharge vitals complete and IV removed by YUMI Clay.
--- NOTE | 2023-12-18 17:47 | PATH ---
[facility] [address] [place], [place] [address] Signed SPECIMEN(S): A LEFT GREAT TOE DORSUM SPECIMEN(S): B LEFT GREAT TOE DISTAL PHALANX SPECIMEN SOURCE: A. LEFT GREAT TOE DORSUM B. LEFT GREAT TOE DISTAL PHALANX CLINICAL HISTORY: Osteomyelitis left great toe. FINAL PATHOLOGIC DIAGNOSIS: A. Left great toe, dorsum soft tissue: - Ulcerated skin and soft tissue with abundant acute inflammation consistent with abscess with extensive soft tissue necrosis. B. Left great toe, distal phalanx: - Bone fragments with acute inflammation consistent with acute osteomyelitis. - Soft tissue fragments with abundant acute inflammation and necrosis consistent with abscess. JVR:tessie MICROSCOPIC EXAMINATION: Histologic sections of all submitted blocks are examined by light microscopy. These findings, together with the gross examination, support the pathologic diagnosis. GROSS DESCRIPTION: A. The specimen, labeled and designated "Igor, left great toe dorsum soft tissue," is received in formalin and consists of several pieces of unoriented bone and soft tissue fragments that aggregate measure 4.8 x 4.0 x 0.6 cm. One tissue fragment shows attached yellow nail that measure 2.0 x 1.5 cm. Specimen is inked and sectioning through the specimen to reveal dark red homogenous tissue. Automotive Technology Instructor sections are submitted in (A1). B. The specimen, labeled and designated "Igor, left great toe distal phalanx bone base," is received in formalin and consists of multiple irregular shaped bone tissue fragments that aggregate measure 2.0 x 1.1 x 0.3 cm. Specimen is left decalcification in decal stat prior to processing. Entirely submitted in (B1). JS (under the direct supervision of a pathologist) The Gross Description was prepared using a voice recognition system. The report PATIENT NAME: JEFFREY VARGAS PATHOLOGY DATE OF : 69 REPORT #: [id number] PHYSICIAN: RADHA URBAN PCP: MELISSA AMBROSE MD REPORT IS CONFIDENTIAL AND NOT TO BE RELEASED WITHOUT AUTHORIZATION [facility] [address] [place], [place] [address] Signed was reviewed for accuracy; however, sound-alike word errors, addition and/or deletions may occur. If there is any question about this report, please contact Client Services. PERFORMING LABORATORY: Technical component was performed by [facility], [address] [place] [address] (CLIA# [id number]). Professional interpretation was performed by [facility], [facility], [address] [place] [id number] (CLIA#: [id number]) Diagnostician: Arturo Mora MD Pathologist Electronically Signed 12/18/2023 Copies: ~ PATIENT NAME: JEFFREY VARGAS PATHOLOGY DATE OF : 69 REPORT #: [id number] PHYSICIAN: RADHA PATHOLOGY PCP: MELISSA AMBROSE MD REPORT IS CONFIDENTIAL AND NOT TO BE RELEASED WITHOUT AUTHORIZATION
== END 2023-12-17 14:25 | disposition home or self-care (01) | DRG 629 ==
LOC: ED 22:21 → MS 22:22
PROVIDERS: Family Medicine; Internal Medicine; ADMIT Surgery; ATTEND Surgery
PROC: 0HBRXZZ Excision of Toe Nail, External Approach (ICD-10-PCS; 2023-12-12)
PROC: 0QBR0ZZ Excision of Left Toe Phalanx, Open Approach (ICD-10-PCS; principal; 2023-12-12 11:13)
PROC: 0QBR0ZX Excision of Left Toe Phalanx, Open Approach, Diagnostic (ICD-10-PCS; 2023-12-12 11:13)
DX: E11.69 Type 2 diabetes mellitus with other specified complication (principal); E11.52 Type 2 diabetes mellitus with diabetic peripheral angiopathy with gangrene; M86.8X7 Other osteomyelitis, ankle and foot; I96 Gangrene, not elsewhere classified; E11.42 Type 2 diabetes mellitus with diabetic polyneuropathy; E11.319 Type 2 diabetes mellitus with unspecified diabetic retinopathy without macular edema; I10 Essential (primary) hypertension; E03.9 Hypothyroidism, unspecified; R33.9 Retention of urine, unspecified; Z98.890 Other specified postprocedural states; Z79.899 Other long term (current) drug therapy; Z79.4 Long term (current) use of insulin; Z79.84 Long term (current) use of oral hypoglycemic drugs; Z79.890 Hormone replacement therapy
CPT/HCPCS: 01470; 36415; 51798; 73660; 80048; 80053; 83605; 85025; 85610; 85651; 86140; 87040; 87070; 87075; 87186; 87205; 94762; A9270; J0735; J0878; J1100; J1885; J2250; J2405; J2543; J2704; J2765; J3010; J7121

== ENCOUNTER 2024-02-19 05:40 | Day surgery (SDC) | payer OTHER ==
[2024-02-17 09:21] VITALS: BP 101/63
[~2024-02-19] VITALS: Ht 182.9 cm; Wt 110.9 kg
[~2024-02-19 05:40] MED LIST changes: +AMOX TR-K CLV1 EAC1 PO; +ANDROGEL75 G1 TD; +BUPROPION HCL150 M2 PO; +CLOBETASOL PROP15 GM TOP; +DEXTROAMPHETAMI10 M1 PO; +DULOXETINE HCL20 MG PO; +FLUVOXAMINE MA100 MG PO; +LACTATED RINGER'S 1,000 ML IV SCH; +LATANOPROST2.5 ML OU; +MELOXICAM15 MG PO; +METFORMIN HCL1000 MG PO; +NOVOLOG FL100 UNIT/1 SUB-Q; +OZEMPIC2 MG/0.75 SUB-Q; +PANTOPRAZOLE SO40 MG PO; +PROPRANOLOL HCL20 MG; +PROPRANOLOL HCL40 MG PO; +SULFAMETHOXAZO1 EAC1 PO; +VITAMIN C WIT1000 MG PO; +VITAMIN D3125 MC2 PO
[2024-02-19 06:06] VITALS: BP 123/58
[2024-02-19] MEDS ORDERED: VANCOMYCIN HCL 500 MG VIAL ONE (06:45)
[2024-02-19] MEDS ORDERED: LIDOCAINE HCL 2% 20 ML MDV ONE (06:46)
[2024-02-19] MEDS ORDERED: Ropivacaine HCl 0.5% 30 ML VIAL ONE (06:46)
[2024-02-19] MEDS ORDERED: MIDAZOLAM HCL 2 MG/2 ML VIAL ONE (06:53)
[2024-02-19] MEDS ORDERED: propofoL 200 MG/20 ML VIAL ONE ×2 (06:55→07:37)
[2024-02-19] MEDS ORDERED: LIDOCAINE HCL 1% 5 ML SDV INJ ONE (07:00)
[2024-02-19] MEDS ORDERED: CEFAZOLIN SODIUM 1 GM/10 ML SYR IV SCH (07:00)
[2024-02-19] MEDS ORDERED: IBLOOD GLUCOSE TEST STRIP 1 EA TEST VI PRN (07:00)
[2024-02-19 09:36] VITALS: BP 112/60
[2024-02-19 10:22] VITALS: BP 125/65
[2024-02-19 11:13] VITALS: BP 117/67
--- NOTE | 2024-02-23 18:09 | PATH ---
[facility] [address] [facility] [place] [address] Signed SPECIMEN(S): A LEFT 1ST METATARSAL HEAD SPECIMEN SOURCE: A. LEFT 1ST METATARSAL HEAD CLINICAL HISTORY: Osteomyelitis FINAL PATHOLOGIC DIAGNOSIS: Left fist metatarsal head: - Bone fragments with features consistent with acute osteomyelitis. JVR:clv MICROSCOPIC EXAMINATION: Histologic sections of all submitted blocks are examined by light microscopy. These findings, together with the gross examination, support the pathologic diagnosis. GROSS DESCRIPTION: The specimen, labeled and designated "Tobi Vargas, left first metatarsal head," is received in formalin and consists of 2 fragments melton-white firm osseous tissue. The first fragment measures 2.3 x 2.0 x 1.7 cm. The articular surface is roughened consistent with eburnation and the margin of resection is smooth. The second fragment of osseous tissue measures 2.0 x 1.5 x 0.7 cm with attached soft tissue extending out to 1.8 cm. The disarticulated surface shows 3 areas of defect ranging size from 0.7 to 1.0 cm. Access Assoc sections of the area of defect on the second fragment and sales representative metals cross-section of the first described fragment submitted in a single cassette for decalcification. JM (under the direct supervision of a pathologist) The Gross Description was prepared using a voice recognition system. The report was reviewed for accuracy; however, sound-alike word errors, addition and/or deletions may occur. If there is any question about this report, please contact Client Services. PERFORMING LABORATORY: Technical component was performed by [facility], [address] [place] [id number] (CLIA# [id number]). Professional interpretation was performed by [facility] - [facility], [address] PATIENT NAME: JEFFREY VARGAS PATHOLOGY DATE OF : [birth year] REPORT #: [id number] PHYSICIAN: RADHA PATHOLOGY PCP: JERRY HUNTER DO REPORT IS CONFIDENTIAL AND NOT TO BE RELEASED WITHOUT AUTHORIZATION [facility] [address] [place] [id number] [address], [place] [address] (CLIA#: [id number]). Diagnostician: Arturo Mora MD Pathologist Electronically Signed 02/23/2024 Copies: ~ PATIENT NAME: JEFFREY VARGAS PATHOLOGY DATE OF : 69 REPORT #: [id number] PHYSICIAN: RADHA PATHOLOGY PCP: JERRY HUNTER DO REPORT IS CONFIDENTIAL AND NOT TO BE RELEASED WITHOUT AUTHORIZATION
--- NOTE | 2024-02-24 15:09 | OR ---
[facility] [address] [place], [place] [address] Signed DATE OF OPERATION: 02/19/2024 SURGEON: Nu Woods DPM PREOPERATIVE DIAGNOSIS: Subacute osteomyelitis involving the proximal phalanx and cellulitis with small local abscess. POSTOPERATIVE DIAGNOSIS: Subacute osteomyelitis involving the proximal phalanx and cellulitis with small local abscess and subacute osteomyelitis first metatarsal head left foot. PROCEDURE: Amputation of left first digit as well as debridement of infected bone first metatarsal left foot and placement of antimicrobial beads. NURSE IRRIGATION SERVICE TECHNICIAN: Jose Daniel Cortes. ANESTHESIA: Local with MAC consisting of 1:1 mixture of 0.5% ropivacaine plain and 2% lidocaine plain, approximately 14 mL was utilized. ESTIMATED BLOOD LOSS: Less than 5 mL or minimal. MATERIALS UTILIZED: Calcium sulfate beads mixed with 1/3rd gram of vancomycin and 4-0 nylon. PROCEDURE IN DETAIL: The patient was brought into the operating room and placed on the operating table in the supine position. Following IV sedation, local anesthesia was administered around the patient's left medial foot. The left foot was then scrubbed, prepped and draped in usual sterile technique and an Esmarch bandage was then utilized to exsanguinate the patient's left foot then this was left wrapped around the ankle to act as a tourniquet. Attention was then directed to the patient's distal medial left foot. Please note prior amputation of the majority of the first digit had been performed perviously. A #15 blade was then utilized to create a semi-curved incision approximately 5 cm in length extending along the dorsal and medial aspect of the first metatarsal extending to the previous amputation incision area crossing over from medial to lateral and ending at the base of Electronically Signed By: NU WOODS DPM 02/24/24 1509 PATIENT NAME: JEFFREY VARGAS OPERATIVE REPORT DATE OF : 69 REPORT #: [id number] PHYSICIAN: NU WOODS DPM PCP: JERRY HUNTER DO REPORT IS CONFIDENTIAL AND NOT TO BE RELEASED WITHOUT AUTHORIZATION [facility] [address] [place], [place] [address] Signed the dorsal aspect of the medial second digit. The incision was then deepened down to the bone. At this time, a small abscess pocket was identified and lysed from the dorsal lateral aspect of the first metatarsal head. Culture swabs were taken. The space was then evacuated and the area around this area was debrided. Exposure of the first metatarsophalangeal joint was achieved. There was evidence of previous infection throughout this region. Lot of melton discolored soft tissue scar tissue formation and also unhealthy appearing bone. The base of the proximal phalanx was fractured with the majority of the remnants being soft. A tenotomy and #64 blade was utilized to excise the base remnant of the proximal phalanx. Rongeur was then utilized to debride necrotic or unhealthy appearing soft tissue in this region. With inspection of the first metatarsal head, the articular surface appeared to be healthy and pearly white, however, there was evidence of bone infection dorsally where there was a melton brown yellow necrotic region on the dorsal aspect that probed down past the cortical structures with soft bone. At this time, it was determined that it would be best if debridement of the first metatarsal took place utilizing a sagittal saw. The distal aspect of the bone was removed removing majority of the first metatarsal head until healthy appearing bone was present. The area around the first metatarsal head was closely inspected. Rongeur was utilized to remove and debride any unhealthy appearing soft tissue. Sesamoids were now visible freely after removing the first metatarsal head until the sesamoids were also removed as the debridement process. The area was flushed with copious amounts of sterile normal saline as well channel was visible into medulla canal of the first metatarsal utilizing antimicrobial beads, approximately 3 or 4 smaller beads were then stuffed into the medullary canal of the first metatarsal. Next, antimicrobial beads were placed around the surgical site surrounding the distal aspect of the first metatarsal bone remnant previous small abscess that was identified. The surgical site was then closed utilizing 4-0 nylon in the simple and also in the interlocking suture technique. Adaptic, Betadine soaked gauze were then applied followed by ABD pad. Isiah and coban were then applied. The ankle tourniquet was removed, prompt hyperemic response was noted to remaining digits of the patient's left foot. The patient tolerated both the procedure and the anesthesia well and then escorted to the recovery by Anesthesia with vital signs stable. Following the period of postoperative monitoring, the patient was discharged to home with both written and oral instructions. [place] Wood/CHARLIEL /[id number] Electronically Signed By: NU WOODS DPM 02/24/24 1509 PATIENT NAME: JEFFREY VARGAS OPERATIVE REPORT DATE OF : 69 REPORT #: [id number] PHYSICIAN: NU WOODS DPM PCP: JERRY HUNTER DO REPORT IS CONFIDENTIAL AND NOT TO BE RELEASED WITHOUT AUTHORIZATION [facility] [address] [place] [address] Signed Copies: ~ Electronically Signed By: NU WOODS DPM 02/24/24 1509 PATIENT NAME: JEFFREY VARGAS PINO OPERATIVE REPORT DATE OF : 69 REPORT #: [id number] PHYSICIAN: NU WOODS DPM PCP: JERRY HUNTER DO REPORT IS CONFIDENTIAL AND NOT TO BE RELEASED WITHOUT AUTHORIZATION
== END 2024-02-19 10:55 | disposition home or self-care (01) ==
LOC: OPS 05:40 → DS 05:40 → OPS 07:00 → DS 07:30 → OPS 07:30
PROVIDERS: ATTEND Podiatrist Foot & Ankle Surgery
PROC: 0Y6Q0Z0 Detachment at Left 1st Toe, Complete, Open Approach (ICD-10-PCS; principal; 2024-02-19 07:00)
DX: E11.69 Type 2 diabetes mellitus with other specified complication (principal); M86.272 Subacute osteomyelitis, left ankle and foot; E11.621 Type 2 diabetes mellitus with foot ulcer; L97.522 Non-pressure chronic ulcer of other part of left foot with fat layer exposed; L97.422 Non-pressure chronic ulcer of left heel and midfoot with fat layer exposed; Z79.899 Other long term (current) drug therapy; E66.9 Obesity, unspecified
CPT/HCPCS: 01470; 73620; 87205; C1713; J0690; J2250; J2704; J2795; J3370; J7121

== ENCOUNTER 2024-03-03 06:50 | Day surgery (SDC) | payer OTHER ==
[2023-12-15 13:21] VITALS: BP 128/69
--- NOTE | 2023-12-18 07:29 | EKG ---
[facility] [address] [facility] [place], [place] [address] Signed Normal sinus rhythm Normal ECG No previous ECGs available Confirmed by Jacque Kiran MD ([id number]) on 12/18/2023 7:29:14 AM Electronically Signed By: JACQUE KIRAN 12/18/23 0729 PATIENT NAME: JEFFREY VARGAS Electrocardiogram DATE OF : 69 PHYSICIAN: JACQUE KIRAN REPORT #: [id number] REPORT IS CONFIDENTIAL AND NOT TO BE RELEASED WITHOUT AUTHORIZATION
--- NOTE | 2023-12-21 11:12 | NUR ---
saw pt today in day surgery and updated information as needed.
--- NOTE | 2024-02-29 09:14 | NUR ---
PHONE CALL TO PT AND UPDATED RECORD. NO CHANGES OTHER THAN WEIGHT. REMAINS ON ABX FOR LT FOOT.
[~2024-03-03] VITALS: Ht 182.9 cm; Wt 113.6 kg
[~2024-03-03 06:50] MED LIST changes: +IBLOOD GLUCOSE TEST STRIP 1 EA TEST VI PRN; +LIDOCAINE HCL 1% 5 ML SDV INJ ONE; +MIDAZOLAM HCL 5 MG/5 ML VIAL IV PRN; +fentaNYL citrate 100 MCG/2 ML VIAL IV PRN
[2024-03-03] MEDS ORDERED: LACTATED RINGER'S 1,000 ML IV SCH (07:00)
[2024-03-03] MEDS ORDERED: IBLOOD GLUCOSE TEST STRIP 1 EA TEST VI PRN (07:00)
[2024-03-03] MEDS ORDERED: LIDOCAINE HCL 1% 5 ML SDV INJ ONE (07:00)
[2024-03-03 07:12] VITALS: BP 110/60
--- NOTE | 2024-03-03 07:28 | NUR ---
RAYMUNDO WAITING WITH MAY LEAVE BRIEFLY.
--- NOTE | 2024-03-03 07:34 | NUR ---
PT NOT AVAILABLE FOR VISIT. PROVIDED PRAYER.
--- NOTE | 2024-03-03 08:35 | NUR ---
HAS BLOOD GLUCOSE REORDER ON ON ADMIT STATED HE WAS 135. CHECK GLUCOSE NOW 102. STATES HES OK.
[2024-03-03] MEDS ORDERED: propofoL 200 MG/20 ML VIAL ONE (09:45)
--- NOTE | 2024-03-03 09:51 | NUR ---
C/O NEEDING HIS GABAPENTIN. FOUNDATION COORDINATOR OFFERED FENTNYL AND PT DECLINED.
--- NOTE | 2024-03-03 09:51 | NUR ---
HAS BEEN UPDATED WITH WAIT X2 .
--- NOTE | 2024-03-03 10:27 | NUR ---
STATES HE HAD SURGERY [address] STREETER ON L TOE. IS WRAPPED WITH DRESSING AND COBAN ON ARRIVAL.
--- NOTE | 2024-03-03 10:46 | NUR ---
03/03/24 1046 Keo Sanon 1030: PT ARRIVED TO PACU VIA STRETCHER. REPORT GIVEN FROM PLASTIC TOOL MAKER. PT ON RA WITH SATS IN THE MID 90'S. PT NON AROUSABLE AT THIS TIME. 1045: PT SLOWLY STARTING TO AWAKE. REMAINS ON RA.
[2024-03-03 11:06] VITALS: BP 115/70
--- NOTE | 2024-03-03 12:00 | NUR ---
1145 CAME TO GET PT. DCD PER WC TO CAR.
--- NOTE | 2024-03-04 07:27 | OR ---
[facility] [address], [place] [address] Signed DATE OF OPERATION: 03/03/2024 SURGEON: Ru Covington MD PREOPERATIVE DIAGNOSES: 1. Personal history of colonic polyps in 2018 at age 52. 2. Long redundant colon. POSTOPERATIVE DIAGNOSES: 1. Long redundant colon. 2. Poor bowel prep. PROCEDURE: Colonoscopy without biopsy. ESTIMATED BLOOD LOSS: None. INDICATIONS: Masoud is a 58-year-old obese diabetic gentleman, asked to see me for a followup colonoscopy. I helped Masoud in 2018 at the age of 52 with his initial screening colonoscopy. He had a long redundant colon and a small tubular adenomatous polyp. He has been on the five year plan. There is no family history of colon cancer or polyps. He has been on Trulicity for the diabetes and he has lost weight from [address] down to 265 pounds over a couple of years. He said he feels much better, but still suffers with his severe sleep apnea and has to wear a CPAP mask. In the office, I gave him a pamphlet on colonoscopy. We reviewed the nature of the test. There is risk including, but not limited to gas bloating, crampy abdominal pain, bleeding, perforation requiring surgery and missed diagnosis. We also reviewed the written instructions for the bowel prep line by line. It is the same bowel prep he took in 2018. We also reviewed his medications very carefully and marked those appropriately on our preop sheet. He also understands the need for monitored anesthesia care given his large size, his diabetes and his severe sleep apnea. In that regard, he did receive preoperative blood work and an EKG. He understands an adult person has to take him home afterwards. He had expressed understanding and wished to proceed. PROCEDURE IN DETAIL: Masoud was taken into our endoscopy suite and placed in the left lateral decubitus position. He was given monitored anesthesia care with propofol infusion per our nurse tare weigher. A digital rectal exam was performed and this was unremarkable. He has no Electronically Signed By: RU COVINGTON MD 03/04/24 0727 PATIENT NAME: MASOUD VARGAS OPERATIVE REPORT DATE OF : 69 REPORT #: [id number] PHYSICIAN: RU COVINGTON MD PCP: JERRY HUNTER DO REPORT IS CONFIDENTIAL AND NOT TO BE RELEASED WITHOUT AUTHORIZATION [facility] [address], [place] [address] Signed external hemorrhoids. He had good sphincter tone. There were no masses. The adult colonoscope was introduced and advanced under direct visualization of the camera. On this occasion, he had a poor bowel prep. Some of that may be attributable to the Trulicity. In the future, he will need a full gallon of polyethylene glycol along with Dulcolax tablets. We made our way carefully up through his long redundant colon particularly left colon and then finally into the cecum with abdominal compression. We irrigated multiple areas and suctioned out quite a bit of particulate liquid stool matter. We could not get quite all of that out. We could see the ileocecal valve and the appendiceal orifice. The scope was then slowly withdrawn. We saw much of his colonic mucosa, I would say more than 50% but we had most trouble in the left colon. I could not quite suction all that out. We did not see any pathology in the left colon or rectum. The scope had been retroflexed. There was no additional pathology above the anal canal. After this, the gas was suctioned out and the colonoscope removed. Masoud tolerated the procedure quite well. RECOMMENDATIONS: Masoud should return in 1 to 3 years for repeat colonoscopy with a double bowel prep. He will always need monitored anesthesia care in the future. Ru Covington MD ALB/MODL /[id number] cc: DO Ru Plaza MD Copies: JERRY HUNTER ANDREW L MD ~ Electronically Signed By: RU COVINGTON MD 03/04/24 0727 PATIENT NAME: MASOUD VARGAS OPERATIVE REPORT DATE OF : 69 REPORT #: [id number] PHYSICIAN: RU COVINGTON MD PCP: JERRY HUNTER DO REPORT IS CONFIDENTIAL AND NOT TO BE RELEASED WITHOUT AUTHORIZATION
== END 2024-03-03 11:15 | disposition home or self-care (01) ==
LOC: DS 06:50
PROVIDERS: ATTEND Colon & Rectal Surgery
PROC: 0DJD8ZZ Inspection of Lower Intestinal Tract, Via Natural or Artificial Opening Endoscopic (ICD-10-PCS; principal; 2024-03-03 07:30)
DX: Z12.11 Encounter for screening for malignant neoplasm of colon (principal); Q43.8 Other specified congenital malformations of intestine; Z86.010 Personal history of colon polyps; I10 Essential (primary) hypertension; E11.42 Type 2 diabetes mellitus with diabetic polyneuropathy; E78.5 Hyperlipidemia, unspecified; E03.9 Hypothyroidism, unspecified; G47.33 Obstructive sleep apnea (adult) (pediatric); K21.9 Gastro-esophageal reflux disease without esophagitis; E55.9 Vitamin D deficiency, unspecified; F32.4 Major depressive disorder, single episode, in partial remission; E66.01 Morbid (severe) obesity due to excess calories; Z68.35 Body mass index [BMI] 35.0-35.9, adult; Z88.8 Allergy status to other drugs, medicaments and biological substances; Z79.890 Hormone replacement therapy; Z79.84 Long term (current) use of oral hypoglycemic drugs; Z79.4 Long term (current) use of insulin; Z79.899 Other long term (current) drug therapy
CPT/HCPCS: 00811; 93005; 93010; J2704; J7121

== ENCOUNTER 2024-07-13 05:35 | Day surgery (SDC) | payer OTHER ==
[2024-07-11 13:27] VITALS: BP 100/67
[~2024-07-13] VITALS: Ht 182.9 cm; Wt 113.6 kg
--- NOTE | ~2024-07-13 | OR ---
[facility] [address] [place], [place] [address] [place] DATE OF OPERATION: 07/13/2024 SURGEON: Nu Woods DPM PREOPERATIVE DIAGNOSES: 1. Subacute osteomyelitis of the left fifth metatarsal. 2. 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 POSTOPERATIVE DIAGNOSES: 1. Subacute osteomyelitis of the left fifth metatarsal. 2. 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 PROCEDURES: 1. Amputation of left fifth digit. 2. Debridement of fifth metatarsal. LBD TEACHER: Ammon Montes DPM NURSE EXTRACTOR AND WRINGER OPERATOR: Suzanne Hunt ANESTHESIA: Local with MAC. Local utilized was 10 mL of 1:1 mix of 2% lidocaine plain and 0.5% ropivacaine plain. ESTIMATED BLOOD LOSS: Less than 3 mL or minimal. HEMOSTASIS: With an ankle tourniquet. MATERIALS UTILIZED: [place] calcium sulfate beads mixed with 1/3rd gram of vancomycin. This was the mini set. PROCEDURE IN DETAIL: The patient was brought into the operating room and placed on the operating table in the supine position. PATIENT NAME: JEFFREY VARGAS OPERATIVE REPORT DATE OF : 69 REPORT #: [id number] PHYSICIAN: NU WOODS DPM PCP: JERRY HUNTER DO REPORT IS CONFIDENTIAL AND NOT TO BE RELEASED WITHOUT AUTHORIZATION [address] [address] [place] Following IV sedation, local anesthesia was administered around the patient's left lateral foot and ankle region. The foot was then scrubbed, prepped and draped in usual sterile technique. An Esmarch bandage was then utilized to exsanguinate the patient's left foot and then left wrapped around the ankle to act as a tourniquet. Attention was then directed to the lateral aspect of the patient's left foot where two semi-elliptical incisions were performed from frontal to proximal at the base of the fifth digit. This was performed utilizing a #15 blade. A 64 blade was then utilized to deepen the incision down to the subcutaneous tissue and deep soft tissue structures down to the level of the joint capsule. Utilizing a 64 blade, joint capsule was then released and the fifth digit was removed from the operative field. The incision was then extended dorsally and slightly lateral on to the dorsal aspect of the fifth metatarsal extending it up to the proximal 1/3rd portion of the metatarsal. Soft tissue structures were then freed from the fifth metatarsal and was observed in the metaphyseal region near the head of the fifth metatarsal. A significant fracture had occurred, also a significant amount of bone debridation had occurred consistent with bone infection along with discoloration of the surrounding tissue and discoloration of the bone itself. No active purulent drainage noted. No sign of active or acute bacterial infection was observed. Cultures were taken at the area around the fracture of fifth metatarsal. Next, a sagittal saw was utilized to perform an osteotomy through and through at the midportion of the fifth metatarsal. This area was then observed, some discoloration and bony compromise was observed in this area. So, soft tissue dissection was extended proximally and another kind of bone was observed until healthy bone was noted. A sample was sent to the lab for observation with the more proximal portion of the osteotomy for observation to make sure this area was clear of bone infection. Next, rongeur was then utilized to debride the soft tissue space. Gelatinous scar tissue was excised along with remnant of tendon and joint capsule. This was performed throughout the area of the fifth metatarsal that had been excised. The area was then flushed with copious amounts of sterile normal saline. Majority of the damaged soft tissue had been excised. Antimicrobial calcium sulfate beads with vancomycin were then placed within the cavity. Other surgical site was then closed utilizing 3-0 nylon in the simple interrupted and continuous in a locking suture techniques. The ulcerative site which was present on the lateral aspect of the fifth metatarsal, this open area was freshened. Ring around the open wound was excised freshening the soft tissue and then this area was also reapproximated with simple interrupted sutures. Adaptic, Betadine soaked gauze was applied followed by fluff gauze, rolled gauze and Coban. The ankle tourniquet was removed and prompt hyperemic response was noted to digits 2 through 4 of the left foot. These were the remaining digits of the foot due to previous amputation of the first digit. The patient had tolerated both the procedure and the anesthesia well was escorted to the recovery area by Anesthesia. Following the period of postoperative monitoring, the patient was discharged to home with both written and oral instructions. PATIENT NAME: JEFFREY VARGAS OPERATIVE REPORT DATE OF : 69 REPORT #: [id number] PHYSICIAN: NU WOODS DPM PCP: JERRY HUNTER DO REPORT IS CONFIDENTIAL AND NOT TO BE RELEASED WITHOUT AUTHORIZATION [address] [address] [place]/MAYDA /[id number] Copies: ~ PATIENT NAME: JEFFREY VARGAS OPERATIVE REPORT DATE OF : 69 REPORT #: [id number] PHYSICIAN: NU WOODS DPM PCP: JERRY HUNTER DO REPORT IS CONFIDENTIAL AND NOT TO BE RELEASED WITHOUT AUTHORIZATION
[~2024-07-13 05:35] MED LIST changes: -IBLOOD GLUCOSE TEST STRIP 1 EA TEST VI PRN; -LIDOCAINE HCL 1% 5 ML SDV INJ ONE; -MIDAZOLAM HCL 5 MG/5 ML VIAL IV PRN; -fentaNYL citrate 100 MCG/2 ML VIAL IV PRN
[2024-07-13 06:07] VITALS: BP 124/67
[2024-07-13] MEDS ORDERED: Ropivacaine HCl 0.5% 30 ML VIAL ONE (06:13)
[2024-07-13] MEDS ORDERED: LIDOCAINE HCL 2% 20 MG/ML VIAL INJ ONE (06:13)
[2024-07-13] MEDS ORDERED: DEXAMETHASONE SOD PHOS 4 MG/ML VIAL ONE (06:13)
[2024-07-13] MEDS ORDERED: VANCOMYCIN HCL 500 MG VIAL ONE (06:13)
[2024-07-13] MEDS ORDERED: fentaNYL citrate 100 MCG/2 ML VIAL ONE (06:51)
[2024-07-13] MEDS ORDERED: ondansetron HCL 4 MG/2 ML VIAL ONE (06:51)
[2024-07-13] MEDS ORDERED: LIDOCAINE HCL 2% 5 ML SDV ONE (06:51)
[2024-07-13] MEDS ORDERED: propofoL 200 MG/20 ML VIAL ONE ×2 (06:51→07:59)
[2024-07-13] MEDS ORDERED: IBLOOD GLUCOSE TEST STRIP 1 EA TEST VI PRN ×2 (07:00→07:45)
[2024-07-13] MEDS ORDERED: LIDOCAINE HCL 1% 5 ML SDV INJ ONE (07:00)
--- NOTE | 2024-07-13 07:40 | NUR ---
PT NOT AVAILABLE FOR VISIT. PROVIDED PRAYER.
[2024-07-13] MEDS ORDERED: fentaNYL citrate 50 MCG/ML SDV IV PRN (07:45)
[2024-07-13] MEDS ORDERED: NALOXONE HCL 0.4 MG SYR IV PRN (07:45)
[2024-07-13] MEDS ORDERED: HYDROmorphone HCL 1 MG/ML SYR IV PRN (07:45)
[2024-07-13] MEDS ORDERED: ondansetron HCL 4 MG/2 ML VIAL IV PRN (07:45)
[2024-07-13] MEDS ORDERED: droPERidol 5 MG/2 ML VIAL IV PRN (07:45)
[2024-07-13] MEDS ORDERED: PROCHLORPERAZINE EDISYLATE 10 MG/2 ML VIAL IV PRN (07:45)
[2024-07-13] MEDS ORDERED: KETOROLAC TROMETHAMINE 15 MG/ML VIAL ONE (09:16)
[2024-07-13] MEDS ORDERED: KETOROLAC TROMETHAMINE 15 MG/ML VIAL IV ONE (09:30)
[2024-07-13 09:40] VITALS: BP 112/68
--- NOTE | 2024-07-13 10:32 | NUR ---
le 0943-PT BACK TO ROOM FROM PACU ON . RECEIVED REPORT FROM ANGELA ALMAZAN. PT IS DROWSY. RESP EVEN AND UNLABORED. SASKIA PAIN AND NAUSEA. PT STATES NUMBNESS IN HIS RIGHT HAND. PT DRINKING ORANGE JUICE. DECLINES A SNACK AT THIS TIME. NO OTHER NEEDS AT THIS TIME. CALL LIGHT WITHIN REACH. LE 0948-PT STATES NUMBNESS IN RIGHT HAND HAS RESOLVED. CALL LIGHT WITHN REACH.
[2024-07-13 10:44] VITALS: BP 102/58
--- NOTE | 2024-07-13 11:48 | NUR ---
07/13/24 1148 Perla Denney 0814 PT ARRIVED IN PACU SLEEPY AND MOVING AROUND IN BED. 0816 C/O L SHOULDER PAIN. ANESTHESIA AWARE. 0825 XRAY OF L FOOT DONE. 0830 MOVING LEGS ALL OVER IN BED. C/O PAIN IN L FOOT 09/22. 0836 FENTANYL 50MCG GIVEN IVP. 0845 RESTING. REU. O2 SATS DROPPED TO 85-89% ON RA. ENCOURAGED COUGH, DEEP BREATHING. SATS INCREASED TO 90-95%. 0904 C/O ITCHING AND SCRATCHING ARMS AND LEGS. 0905 TC TO ANESTHESIA WITH NEW ORDERS RECEIVED. 0910 BLOOD SUGAR 79. 0912 C/O JAW PAIN. TC TO ANESTHESIA WITH NEW ORDERS RECEIVED. 0919 TORADOL 15MG GIVEN IV. 0920 C/O NUMBNESS IN L HAND. NO C/O SOB, CHEST PAIN OR ITCHING. PT STATES "I'VE GOT CARPEL TUNNEL AND MY HAND SOMETIMES GOES NUMB." SITTING UP IN BED DRINK ORANGE JUICE. 0933 BLOOD SUGAR 80 ON RECHECK. GLASSES RETURNED TO PT. 0943 TO DS UNTIL BLOOD SUGAR INCREASES AND PT MORE AWAKE. REPORT GIVEN TO RN.
--- NOTE | 2024-07-13 11:57 | NUR ---
RAJINDER 1045-PT LAYING IN BED WITH EYES CLOSED. OPENS EYES TO VERBAL STIMULI. RESP EVEN AND UNLABORED. DENIES PAIN. PT READY TO GO HOME. PT WILL GET DRESSED. CALL LIGHT WITHIN REACH.
--- NOTE | 2024-07-13 11:59 | NUR ---
1100-WENT OVER DISHCARGE INSTRUCTIONS WITH PT. ALL QUESTIONS ANSWERED. PT AMBULATES TO WHEELCHAIR AND RIDE PROVIDED TO FRONT OF HOSPITAL WHERE FAMILY WAS WAITING WITH THE CAR.
== END 2024-07-13 11:00 | disposition home or self-care (01) ==
LOC: OPS 05:35 → DS 05:35 → OPS 07:30
PROVIDERS: ATTEND Podiatrist Foot & Ankle Surgery
PROC: 0Y6Y0Z0 Detachment at Left 5th Toe, Complete, Open Approach (ICD-10-PCS; principal; 2024-07-13 07:30)
PROC: 0QBP0ZZ Excision of Left Metatarsal, Open Approach (ICD-10-PCS; 2024-07-13 07:30)
DX: E11.69 Type 2 diabetes mellitus with other specified complication (principal); M86.272 Subacute osteomyelitis, left ankle and foot; E11.621 Type 2 diabetes mellitus with foot ulcer; L97.526 Non-pressure chronic ulcer of other part of left foot with bone involvement without evidence of necrosis; Z79.4 Long term (current) use of insulin; Z79.84 Long term (current) use of oral hypoglycemic drugs; Z79.899 Other long term (current) drug therapy
CPT/HCPCS: 01482; 73630; C1713; J1100; J1885; J2003; J2405; J2704; J2795; J3010; J3370